=== PATIENT | male | born 1945 | race Caucasian/White ===

== ENCOUNTER → 2018-02-27 14:40 | Outpatient (CLI) | payer MEDICARE, OTHER, SELFPAY ==
--- NOTE | 2018-02-27 | DI.RAD.S_ITS ---
PROCEDURE: XR FOOT LT MIN 3V INDICATIONS: 72 year-old male with left foot pain. TECHNIQUE: 3 views of the foot were acquired. COMPARISON: None. FINDINGS: Skin marker denotes the site of clinical concern at the first metatarsophalangeal joint. Bones: No fractures or dislocations. No bony erosions. No joint degeneration. No suspicious bony lesions. Soft tissues: No soft tissue calcification. No tibiotalar joint effusion. Achilles tendon appears normal. IMPRESSION: No radiographic explanation for medial left forefoot pain. Dictated by: Francisco Holcomb M.D. on 02/27/2018 at 15:23 Approved by: Francisco Holcomb M.D. on 02/27/2018 at 15:25
== END ==
PROVIDERS: Visit Provider Internal Medicine
DX: M79.672 Pain in left foot (principal)
CPT/HCPCS: 73630

== ENCOUNTER → 2018-06-28 14:48 | Outpatient (CLI) | payer MEDICARE, OTHER, SELFPAY ==
--- NOTE | 2018-06-28 | DI.US.S_ITS ---
PROCEDURE: US ABDOMEN COMPLETE INDICATIONS: ABDOMINAL PAIN TECHNIQUE: Real-time scanning was performed of the abdominal and retroperitoneal organs, with image documentation. COMPARISON: None. FINDINGS: Liver: Liver is normal in size and homogeneous in echotexture. Gallbladder: No findings of gallstones or sludge are seen. The gallbladder wall is not thickened, measuring 3 mm or less. No specific pericholecystic fluid is seen. The sonographic Hoff sign is negative. Biliary ducts: Intrahepatic bile ducts are non-dilated. Extrahepatic bile duct caliber measures 6 mm. Normal is 6-7 mm or less in diameter, or 10 mm or less post-cholecystectomy. Pancreas: Laparoscopic anchors are seen. Spleen: Spleen is normal in size and homogeneous in echotexture. Kidneys: Kidneys are normal in size and echotexture. Right kidney measures 11.4 cm long; left kidney measures 9.8 cm long. No hydronephrosis or nephrolithiasis. No solid masses. Aorta: Visualized aorta is normal in caliber at less than 3 cm. Iliacs: Proximal common iliac arteries are normal in caliber at less than 2.5 cm. IVC: Intrahepatic inferior vena cava is patent. Miscellaneous: No free abdominal fluid. IMPRESSION: The gallbladder demonstrates a normal sonographic appearance. No biliary dilatation is seen. Dictated by: Dc Evans M.D. on 06/28/2018 at 14:56 Approved by: Dc Evans M.D. on 06/28/2018 at 14:57
== END ==
PROVIDERS: Visit Provider Internal Medicine
DX: R10.9 Unspecified abdominal pain (principal)
CPT/HCPCS: 76700

== ENCOUNTER → 2020-05-04 08:58 | Outpatient (CLI) | payer MEDICARE, OTHER, SELFPAY ==
[2020-05-05 09:14] LABS: COVID19 Sendout Not Detected (Not Detect)
== END ==
PROVIDERS: PCP Internal Medicine; Visit Provider Physician Assistant
DX: Z11.59 Encounter for screening for other viral diseases (principal)
CPT/HCPCS: 87635

== ENCOUNTER 2020-05-07 09:39 | Day surgery (SDC) | payer MEDICARE, OTHER, SELFPAY ==
--- NOTE | 2020-05-07 | PATH_ITS ---
[facility] Accession Number: [id number] . 01 Material submitted: . colon - POLYPS AT 80 CM . 01 Clinical history: . SDC . 02 Diagnosis: Colon, Polyps at 80 cm, Biopsy: Tubular adenomas. [facility] 05/10/2020 0927 Local . 02 Electronically signed: . Katharina Jacobson MD, Pathologist NPI- [id number] . 01 Gross description: . Received in formalin, labeled polyp at 80 cm, are three fragments of kern, soft tissue measuring 0.5 x 0.3 x 0.3 cm to 0.3 x 0.3 x 0.2 cm and two larger pieces of kern, soft tissue measuring 1.2 x 1.0 x 0.6 cm to 0.7 x 0.3 x 0.3 cm. The three smaller fragments are entirely submitted in cassette A1. The first large piece is inked, trisected, and entirely submitted in cassette A2. The tissue may further fragment during processing. The second large piece is inked, bisected, and entirely submitted in cassette A3. ([id number]) /FRR 05/08/2020 0853 Local . 02 Pathologist provided ICD-10: D12.6 . 02 CPT . 393421 Performed at: 01 [facility] [address], [place], [place] [id number] MD Gavino Reyes MD Phone: [phone] Performed at: 02 [facility] [address] [place], [place] [id number] MD Katharina Jacobson MD Phone: [phone]
[2020-05-07 09:58] VITALS: BP 145/88; PULSE 62; RESP 16; TEMP 36.3; O2SAT 97; BMI 23.7
[2020-05-07] MEDS: SODIUM CHLORIDE 0.9% 1,000 ML 200 ML IV (10:09)
--- NOTE | 2020-05-07 10:39 | P.HP_ITS ---
History of Present Illness History of Present Illness Date Patient Seen: 05/07/20 Time Patient Seen: 10:39 Chief complaint: [facility] [place] Narrative: This is a 74 year old man with personal history of colon polyps. His last colonoscopy was 7 years ago per him. He says that he has not had any melena, hematochezia, unexplained abdominal pain, or unexplained weight loss. ROS: He has some right-sided rib pain from a fall a few weeks ago. Thirteen system review is otherwise negative other than as mentioned below and in HPI. PE GENERAL: Well groomed and cooperative. Appears stated age. Answers questions promptly and appropriately. Vital signs noted. HENT: Normocephalic, atraumatic. Hearing intact. EYES: Conjunctiva pink, sclera white, no periorbital swelling. CARDIOVASCULAR: Regular rate. No pedal edema. RESPIRATORY: Non-tachypneic, breathing comfortably on room air. GASTROINTESTINAL: Abdomen soft and non-distended GENITALURINARY: No flank tenderness. MUSCULOSKELETAL: Equal tone and mass bilaterally. SKIN: Warm, dry, soft, appropriate color for ethnicity. No other lesions, rashes, or wounds. NEURO: Alert and Oriented X 3. No gross sensory deficits, or cognitive issues. PSYCH: Appropriate affect and mood. Patient History Family & Social History Social History: household members spouse Tobacco & Substance use: Smoking Status Former smoker alcohol intake current alcohol intake frequency 0-2 drinks per day Substance Use Type does not use Meds Home Medications and Allergies Home Medications Medication Instructions Recorded Confirmed Type calcium acetate(phosphat bind) 500 mg PO DAILY #0 08/11/11 05/07/20 History cholecalciferol (vitamin D3) 50 mcg PO DAILY 05/07/20 05/07/20 History [Vitamin D3] lactobacillus combination no.4 3,000 mmu cells PO DAILY 05/07/20 05/07/20 History [Probiotic] losartan 25 mg PO BID 05/07/20 05/07/20 History omeprazole 20 mg PO BID 05/07/20 05/07/20 History Allergies Allergy/AdvReac Type Severity Reaction Status Date / Time No Known Drug Allergies Allergy Unverified 05/04/20 08:57 Exam Vital Signs (past 8 hours): - 05/07/20 09:58 Temperature 97.4 F L Pulse Rate 62 Respiratory Rate 16 Blood Pressure 145/88 H Pulse Oximetry 97 Oxygen Delivery Method Room Air Assessment & Plan Assessment and plan (1) Personal history of colonic polyps: Status: Acute Assessment & Plan narrative: Risks and benefits of screening colonoscopy and possible polypectomy were discussed with the patient including risk of bleeding, perforation, need for additional procedures, risks of anesthesia. The patient desires to proceed with the colonoscopy procedure. COVID-19 COVID-19 status: Negative Result date/Date tested (Pos, Neg/Pending): 05/04/20 Time Spent With Patient Time with patient: 15-24 minutes Quality VTE Deep Vein Thrombosis/Pulmonary Embolism Present on Admission: No
[2020-05-07] MEDS: fentaNYL 250 MCG/5 ML INJ IV (10:44)
[2020-05-07] MEDS: MIDAZOLAM 5 MG/5 ML VIAL IV (10:45)
--- NOTE | 2020-05-07 10:46 | P.OP.ENDO_ITS ---
Operative Date/Time/Diagnoses Date of procedure: 05/07/20 Time of procedure: 10:46 Pre-op diagnosis: Personal history of colon polyps Post-op diagnosis: other (Five polyps at 80 cm removed with hot snare and cold forceps, severe diverticulosis throughout the sigmoid and descending colon) Procedure & Clinicians Study performed: Colonoscopy Procedural sedation performed by the endoscopy Polypectomy x5 with hot snare and cold forceps Tattooing of the colon of the polypectomy site Same procedure as scheduled: Yes Indications: Personal history of colon polyps Surgeon: Salud Urban Procedure Notes SCOAP/Timeout: Performed Procedure in detail: The patient was brought to the room and placed in left lateral decubitus position with all bony prominences padded. A time-out was performed and then the patient was given procedural sedation starting with 2 mg of Versed and 100 mcg of fentanyl. Total of 3 mg of Versed and 150 micro g of fentanyl were given for the entire procedure. Vitals were monitored throughout the procedure and remained stable. Once adequately sedated, the procedure was begun. A rectal exam was performed revealing no abnormalities. The colonoscope was then introduced to the rectum and advanced to the cecum in the usual fashion. The cecum was identified by the appendiceal orifice, the mucosal tri- fold, and the ileocecal valve. The scope was then retracted while rotating side to side and examining each mucosal fold. There was extensive diverticulosis found in the descending and sigmoid colon. There were 5 polyps found at 80 cm. For them were large in group together. They were removed with hot snare additional polyp was found on the opposite wall which appeared to be hyperplastic. These were all removed and placed in the same container. At the conclusion of the procedure retroflexion was performed and small grade 1-2 internal hemorrhoids without stigmata of bleeding were seen. The scope was then withdrawn from the rectum the procedure was concluded. The patient tolerated the procedure well and was transferred to the PACU in stable condition. Scope withdrawal time: 9 Sedation minutes: 26 Findings: polyp (Multiple large polyps removed from 80 cm) Specimen(s): other (Multiple large polyps from 80 cm) Complications: none Impression: Multiple large polyps at 80 cm Post-procedure Recommendations: Colonscopy in 1 year (Recheck polypectomy site) and Other recommendation (Additional follow-up depending on pathology results) Follow up: as needed Disposition: PACU
[2020-05-07 11:17] VITALS: BP 139/84; PULSE 62; RESP 16; TEMP 36.3; O2SAT 100
[2020-05-07 11:26] VITALS: BP 133/80; PULSE 59; RESP 20; O2SAT 98
[2020-05-07 11:29] VITALS: BP 138/83; PULSE 59; RESP 20; O2SAT 99
[2020-05-07 11:31] VITALS: BP 138/81; PULSE 58; RESP 17; O2SAT 98
[2020-05-07 11:42] VITALS: BP 149/85; PULSE 59; RESP 18; TEMP 36.8; O2SAT 100
== END 2020-05-07 12:05 | disposition home or self-care (01) ==
PROVIDERS: PCP Internal Medicine; Referring Provider Internal Medicine; Visit Provider Surgery
PROC: 0DJD8ZZ Inspection of Lower Intestinal Tract, Via Natural or Artificial Opening Endoscopic (ICD-10-PCS; CPT 45378; principal; 2020-05-07 10:45)
DX: Z12.11 Encounter for screening for malignant neoplasm of colon (principal); Z86.010 Personal history of colon polyps; D12.6 Benign neoplasm of colon, unspecified
CPT/HCPCS: 45385; 45381; 45380; 99152; J2250; J3010

== ENCOUNTER → 2020-06-11 09:22 | Outpatient (CLI) | payer MEDICARE, OTHER, SELFPAY ==
[2020-06-11 10:29] LABS: Add Manual Diff / Slide Review NO; Basophils Absolute Auto 0 /uL (0-100); Basophils Percent Auto 0.2 % (0-2); Eosinophils Absolute Auto 200 /uL (0-450); Eosinophils Percent Auto 2.6 % (2-4); Hematocrit 42.5 % (41-53); Hemoglobin 14.4 g/dL (13.5-17.5); Lymphocytes Absolute Auto 1200 /uL (1100-4500); Lymphocytes Percent Auto 19.8 % (25-40); Mean Corpuscular HGB Conc 33.8 % (30-36); Mean Corpuscular Hemoglobin 32.2 PG (26-34); Mean Corpuscular Volume 95.3 fL (80-100); Monocytes Absolute Auto 400 /uL (0-900); Monocytes Percent Auto 7.2 % (3-14); Neutrophils Absolute Auto 4200 /uL (1500-7000); Neutrophils Percent Auto 70.2 % (50-75); Platelet Count 165 X10^3/uL (150-400); Red Blood Cell Count 4.46 X10^6/uL (4.5-5.9); Red Cell Distribution Width 13.5 % (11.6-14.8)
[2020-06-11 11:04] LABS: BUN Creatinine Ratio 19.8 (6-22); Blood Urea Nitrogen 21 mg/dL (9-20); Carbon Dioxide 31 mmol/L (22-32); Chloride 104 mmol/L (98-107); Estimated Glomerular Filt Rate > 60.0 mL/min (>60); Glucose 81 mg/dL (80-110); HEMOLYSIS < 15 (0-50); Potassium 4.3 mmol/L (3.4-5.1); Sodium 138 mmol/L (137-145)
== END ==
PROVIDERS: PCP Internal Medicine; Referring Provider Internal Medicine; Visit Provider Internal Medicine
DX: I10 Essential (primary) hypertension (principal); M81.0 Age-related osteoporosis without current pathological fracture
CPT/HCPCS: 36415; 80048; 85025

== ENCOUNTER → 2020-06-17 14:04 | Outpatient (CLI) | payer MEDICARE, OTHER, SELFPAY | PROVIDERS: PCP Internal Medicine; Referring Provider Internal Medicine; Visit Provider Internal Medicine | DX: M81.0 Age-related osteoporosis without current pathological fracture (principal); Z82.62 Family history of osteoporosis; Z87.891 Personal history of nicotine dependence | CPT/HCPCS: 77080 ==

== ENCOUNTER → 2020-07-29 12:07 | Outpatient (CLI) | payer MEDICARE, OTHER, SELFPAY ==
--- NOTE | 2020-07-29 12:10 | DI.MRI.S_ITS ---
PROCEDURE: MR LUMBAR SPINE WO CON INDICATIONS: Pain. TECHNIQUE: Noncontrast sagittal T1 spin echo and T2 fast echo, sagittal STIR, axial T1 and T2 fast spin echo through the lumbar spine. In cases with scoliosis, additional coronal T2 fast spin echo may be performed. COMPARISON: None. FINDINGS: Image quality: Excellent. Alignment and Curvature: There is normal bony alignment. Bone Marrow: Reactive endplate changes noted adjacent to the L5-S1 disc. Chronic appearing L1 and L4 compression deformities noted. L1 compression fracture results in approximately 50% loss of normal vertebral body height. L4 compression fracture results in approximately 20% loss of normal vertebral body height. No acute vertebral body compression fractures. Spinal Cord: Conus medullaris terminates at the L1 level. Visualized cord demonstrates normal signal and size. Paraspinous Soft Tissues: No paravertebral masses. L1-L2: Loss of disc signal. Mild, diffuse disc bulge. No central stenosis. Mild bilateral neural foraminal narrowing. No neural compression. L2-L3: Loss of disc signal. Mild, diffuse disc bulge. Mild bilateral facet hypertrophy. Mild narrowing of the central canal. Mild to moderate bilateral neural foraminal narrowing. No neural compression fissure noted in the posterior annulus. L3-L4: Loss of disc signal. Minimal, diffuse disc bulge. [id number] bilateral facet hypertrophy. Mild narrowing of the central canal. Mild to moderate bilateral neural foraminal narrowing. No neural compression. L4-L5: Loss of disc signal. Mild to moderate diffuse disc bulge. Moderate bilateral facet hypertrophy. Moderate to severe narrowing of the central canal with crowding of the nerve roots of the cauda equina. Moderate bilateral neural foraminal narrowing. Fissure noted in the posterior annulus. L5-S1: Loss of disc signal and height. Mild, diffuse disc bulge. Small left central disc protrusion. Disc protrusion abuts and compresses the traversing left S1 nerve root. Mild right moderate left facet hypertrophy. Mild narrowing of the central canal. Moderate right and severe left neural foraminal narrowing with compression of the exiting left L5 nerve root. IMPRESSION: 1. Multilevel degenerative disc disease. 2. Multilevel facet arthropathy. 3. Moderate to severe L4-L5 central canal narrowing with crowding of the nerve roots of the cauda equina. 4. Severe left L5-S1 neural foraminal narrowing with compression of the exiting left L5 nerve root. 5. L5-S1 left central disc protrusion abuts and compresses the traversing left S1 nerve root. Dictated by: Yoli Starkey MD, PhD on 07/29/2020 at 13:55 Approved by: Yoli Starkey MD, PhD on 07/29/2020 at 14:13
== END ==
PROVIDERS: PCP Internal Medicine; Referring Provider Internal Medicine; Visit Provider Internal Medicine
DX: M48.062 Spinal stenosis, lumbar region with neurogenic claudication (principal); M48.07 Spinal stenosis, lumbosacral region; M51.36 Other intervertebral disc degeneration, lumbar region; M51.27 Other intervertebral disc displacement, lumbosacral region; M47.816 Spondylosis without myelopathy or radiculopathy, lumbar region; N40.1 Benign prostatic hyperplasia with lower urinary tract symptoms
CPT/HCPCS: 72148

== ENCOUNTER 2020-09-20 12:04 | Emergency (ER) | payer MEDICARE, OTHER, SELFPAY ==
[2020-09-20 12:19] VITALS: BP 169/84; PULSE 71; RESP 16; TEMP 36.6; O2SAT 97; BMI 24.0
--- NOTE | 2020-09-20 12:20 | DI.RAD.S_ITS ---
PROCEDURE: XR CHEST 1V INDICATIONS: chest pain TECHNIQUE: One view of the chest was acquired. COMPARISON: [facility], , CHEST 2 VIEW, 08/17/2015, 16:11. FINDINGS: Surgical changes and devices: None. Lungs and pleura: Lungs are clear. No pleural effusions or pneumothorax. Mediastinum: Mediastinal contours appear normal. Heart size is normal. Bones and chest wall: No suspicious bony lesions. Overlying soft tissues appear unremarkable. IMPRESSION: No acute process. Dictated by: Jefe Ren M.D. on 09/20/2020 at 12:53 Approved by: Jefe Ren M.D. on 09/20/2020 at 12:54
[2020-09-20 12:35] VITALS: PULSE 59; RESP 20; O2SAT 97
[2020-09-20 12:37] LABS: Add Manual Diff / Slide Review NO; Basophils Absolute Auto 0 /uL (0-100); Basophils Percent Auto 0.4 % (0-2); Eosinophils Absolute Auto 100 /uL (0-450); Eosinophils Percent Auto 1.7 % (2-4); Hematocrit 44.7 % (41-53); Hemoglobin 15.3 g/dL (13.5-17.5); Lymphocytes Absolute Auto 1200 /uL (1100-4500); Lymphocytes Percent Auto 18.5 % (25-40); Mean Corpuscular HGB Conc 34.4 % (30-36); Mean Corpuscular Hemoglobin 32.3 PG (26-34); Mean Corpuscular Volume 93.9 fL (80-100); Monocytes Absolute Auto 500 /uL (0-900); Monocytes Percent Auto 7.5 % (3-14); Neutrophils Absolute Auto 4800 /uL (1500-7000); Neutrophils Percent Auto 71.9 % (50-75); Platelet Count 177 X10^3/uL (150-400); Red Blood Cell Count 4.76 X10^6/uL (4.5-5.9); Red Cell Distribution Width 13.1 % (11.6-14.8); White Blood Cell Count 6.6 X10^3/uL (4.5-11.0)
[2020-09-20 12:43] LABS: Prothrombin Time 11.8 SECONDS (10.1-12.7)
[2020-09-20 12:46] LABS: PTT Partial Thromboplastin Tim 34 SECONDS (26.4-36.2)
[2020-09-20 12:49] LABS: Alanine Aminotransferase 25 IU/L (<50); Albumin Globulin Ratio 1.4 (1.0-2.8); Alkaline Phosphatase 80 U/L (38-126); Aspartate Aminotransferase 28 IU/L (17-59); Bilirubin Total 0.8 mg/dL (0.2-1.3); Blood Urea Nitrogen 21 mg/dL (9-20); Calcium 8.9 mg/dL (8.4-10.2); Carbon Dioxide 31 mmol/L (22-32); Chloride 105 mmol/L (98-107); Creatine Kinase 42 U/L (55-170); Estimated Glomerular Filt Rate > 60.0 mL/min (>60); Globulin 2.9 g/dL (1.7-4.1); Glucose 85 mg/dL (80-110); HEMOLYSIS < 15 (0-50); Lipase 54 U/L (23-300); Potassium 4.1 mmol/L (3.4-5.1); Sodium 138 mmol/L (137-145); Total Protein 6.9 g/dL (6.3-8.2)
[2020-09-20 13:00] VITALS: BP 152/81; PULSE 57; RESP 16; O2SAT 97
[2020-09-20 13:01] LABS: NT-proBNP (BNP-Adult 18+) 203 pg/mL (<450); Troponin I < 0.012 ng/mL (0.01-0.034)
--- NOTE | 2020-09-20 13:01 | ED.DIZZY ---
HPI - Dizziness General Chief Complaint: Dizziness Stated Complaint: short of breath on exertion,vertigo Time Seen by Provider: 09/20/20 12:28 Source: patient Mode of arrival: Ambulatory Limitations: no limitations History of Present Illness HPI Narrative: This is a 75-year-old male who comes to the emergency department with complaint of vertigo like symptoms. He states that it started Sunday evening or on the , patient was reaching up to get something out of a closet when he suddenly felt like the room and more himself at this time or spinning. He states for the next 24 hours symptoms were pretty significantly been slowly fatiguing but continue particularly with bpgo-pl-csar movement of his head or quick movement. Up and down does not increase his symptoms. Patient denies headache, no lightheadedness or passing out. He states he did fall backwards to the wall but did not hit his head. He has had some decreased energy and fatigue. He has noticed a little bit of shortness of breath when he exerts himself. He normally walks for a 1/2 miles daily but has not since his symptoms started. He denies any chest pain or pressure. No diaphoresis. He was quite nauseated the 1st day but this has resolved. No vomiting episodes. No issues with bowel movements. He has some chronic urinary incontinence. He states that today he came in because he has continued to have symptoms. She tried follow-up with his primary care who sent him to the walk-in clinic who then sent him here. His main concern today was actually getting a COVID swab with his shortness of breath. Related Data Home Medications Medication Instructions Recorded Confirmed calcium acetate(phosphat bind) 500 mg PO DAILY #0 08/11/11 05/07/20 Probiotic 3,000 mmu cells PO DAILY 05/07/20 05/07/20 cholecalciferol (vitamin D3) 50 mcg PO DAILY 05/07/20 05/07/20 [Vitamin D3] losartan 25 mg PO BID 05/07/20 05/07/20 omeprazole 20 mg PO BID 05/07/20 05/07/20 Previous Rx's Medication Instructions Recorded meclizine 25 mg PO TID PRN #20 tab 09/20/20 Allergies Allergy/AdvReac Type Severity Reaction Status Date / Time cyclobenzaprine Allergy Intermediate Drowsy Verified 09/16/20 10:22 [From Flexeril] Review of Systems Review of Systems ROS Unobtainable: All systems reviewed & are unremarkable except as noted in HPI and below Patient History Medical History (Updated 09/20/20 @ 15:03 by Irena Dinh DO) Hypertension Surgical History H/O cataract removal with insertion of prosthetic lens History of hernia surgery Hx of eye surgery Family History (Updated 09/16/20 @ 10:24 by Lilly Buchanan LPN) Father Pneumonia Mother Dementia Alzheimer disease Social History household members: spouse Smoking Status: Former smoker alcohol intake: current Smoking Status: Former smoker alcohol intake frequency: 0-2 drinks per day Substance Use Type: does not use Exam Narrative Exam Narrative: GEN: well nourished, well appearing elderly male, alert and oriented x 3, patient appears to be in mild distress. HEENT: Atraumatic, pupils are equal round reactive to light, extraocular movements are intact, no nystagmus appreciated, nares are clear, left TM is are clear with no fluid, right TM patient has scant fluid, no erythema, no bulge. Had TM has normal right reflection. Throat is clear without any exudates, erythema, tonsillar enlargement or uvular deviation, no facial droop. No dysarthria. HEART: Regular rate and rhythm without murmur, clicks, rubs. Pulses are equal in upper and lower extremities LUNGS:Lungs clear to auscultation, no wheezes, rales, crackles, chest moves symmetrically ABD:bowel sounds normal, soft, non-tender, no guarding, rebound, rigidity, no masses noted, no hepatosplenomegaly :No CVA tenderness MSCL: Non-tender, no muscle atrophy, muscles strength 5/5 upper and lower extremities, full range of motion NEURO:CN 2-12 intact, sensation normal, reflexes 2/4 upper and lower extremities. finger nose finger test normal, heel asencio test normal SKIN: no rash, erythema, ecchymosis or other changes noted. Initial Vital Signs Initial Vital Signs: Vital Signs Temperature 97.8 F 09/20/20 12:19 Pulse Rate 71 09/20/20 12:19 Respiratory Rate 16 09/20/20 12:19 Blood Pressure 169/84 H 09/20/20 12:19 Pulse Oximetry 97 09/20/20 12:19 Scores NIH Stroke Scale Level of Conciousness: Alert, keenly responsive Ask month/age: Answers both questions correctly. Open/close eyes, close hand: Performs both tasks correctly Best gaze horizontal: Normal Visual russell: No visual loss Facial palsy: Normal symetrical movement Left arm drift: No drift for full 10 sec Right arm drift: No drift for full 10 sec Left leg drift: No drift for full 5 sec Right leg drift: No drift for full 5 sec Limb ataxia: Absent Sensory on face/arms/legs: Normal, no sensory loss Best language: No aphasia, normal Dysarthria: Normal Extinction or inattention: No abnormality Total NIH Stroke scale score: 0 Course Orders Ordered: ED Orders 09/20/20 12:20 XR chest 1V Stat EKG-12 Lead Stat 09/20/20 12:25 Complete Blood Count AUTO DIFF Stat Comprehensive Metabolic Panel Stat Lipase Stat Magnesium Stat NT-proBNP (BNP-Adult 18+) Stat Partial Thromboplastin Time Stat Prothrombin Time INR Stat Thyroid Stimulating Hormone Stat Troponin & CK Cardiac Panel Stat 09/20/20 13:36 CT angio head and neck Stat CT head/brain wo con Stat 09/20/20 13:54 EKG-12 Lead Stat 09/20/20 14:23 COVID19 Stat Consultations Consultation #1: Dr. Clinton with cardiology discussed EKG. Spoke with Dr. Clinton if only noted in a single beat and patient is not bradycardic he would recommend outpatient ZIO patch, making sure magnesium, potassium and TSH are appropriate. The patient is not taking any AV patti blockers which he is not his only medication currently is losartan and omeprazole. Time: 13:45 Vital Signs Vital signs: Vital Signs - 8 hr 09/20/20 12:19 09/20/20 12:35 09/20/20 13:00 Temperature 97.8 F Pulse Rate 71 59 L 57 L Respiratory Rate 16 20 16 Blood Pressure 169/84 H 152/81 H Pulse Oximetry 97 97 97 09/20/20 13:30 09/20/20 13:31 09/20/20 15:48 Temperature Pulse Rate 59 L 62 61 Respiratory Rate 20 21 20 Blood Pressure 189/92 H 166/83 H Pulse Oximetry 98 98 98 MDM - Dizziness Lab Data Attestation: I reviewed the patient's lab results. Result diagrams: 09/20/20 12:25 09/20/20 12:25 Labs: Lab Results 09/20/20 09/20/20 09/20/20 Range/Units 12:25 12:25 12:25 WBC 6.6 (4.5-11.0) X10^3/uL RBC 4.76 (4.5-5.9) X10^6/uL Hgb 15.3 (13.5-17.5) g/dL Hct 44.7 (41-53) % MCV 93.9 (80-100) fL MCH 32.3 (26-34) PG MCHC 34.4 (30-36) % RDW 13.1 (11.6-14.8) % Plt Count 177 (150-400) X10^3/uL Neut % (Auto) 71.9 (50-75) % Lymph % (Auto) 18.5 L (25-40) % [place] % (Auto) 7.5 (3-14) % Eos % (Auto) 1.7 L (2-4) % Baso % (Auto) 0.4 (0-2) % Neut # (Auto) 4800 (9409-1245) /uL Lymph # (Auto) 1200 (1366-9897) /uL [place] # (Auto) 500 (0-900) /uL Eos # (Auto) 100 (0-450) /uL Baso # (Auto) 0 (0-100) /uL PT 11.8 (10.1-12.7) SECONDS INR 1.0 (0.9-1.3) APTT 34 (26.4-36.2) SECONDS Sodium 138 (137-145) mmol/L Potassium 4.1 (3.4-5.1) mmol/L Chloride 105 (98-107) mmol/L Carbon Dioxide 31 (22-32) mmol/L BUN 21 H (9-20) mg/dL Creatinine 1.05 (0.66-1.25) mg/dL Estimated GFR > 60.0 (>60) mL/min BUN/Creatinine Ratio 20.0 (6-22) Glucose 85 (80-110) mg/dL Calcium 8.9 (8.4-10.2) mg/dL Magnesium (1.6-2.3) mg/dL Total Bilirubin 0.8 (0.2-1.3) mg/dL AST 28 (17-59) IU/L ALT 25 (<50) IU/L Alkaline Phosphatase 80 (38-126) U/L Total Creatine Kinase 42 L (55-170) U/L CK-MB (CK-2) TNP CK-MB (CK-2) Rel Index TNP Troponin I < 0.012 (0.01-0.034) ng/mL NT-Pro-B Natriuret Pep 203 (<450) pg/mL Total Protein 6.9 (6.3-8.2) g/dL Albumin 4.0 (3.5-5.0) g/dL Globulin 2.9 (1.7-4.1) g/dL Albumin/Globulin Ratio 1.4 (1.0-2.8) Lipase 54 (23-300) U/L TSH (0.47-4.68) uIU/mL SARS-CoV-2 (PCR) (Negative) 09/20/20 09/20/20 09/20/20 Range/Units 12:25 12:25 12:25 WBC (4.5-11.0) X10^3/uL RBC (4.5-5.9) X10^6/uL Hgb (13.5-17.5) g/dL Hct (41-53) % MCV (80-100) fL MCH (26-34) PG MCHC (30-36) % RDW (11.6-14.8) % Plt Count (150-400) X10^3/uL Neut % (Auto) (50-75) % Lymph % (Auto) (25-40) % [place] % (Auto) (3-14) % Eos % (Auto) (2-4) % Baso % (Auto) (0-2) % Neut # (Auto) (0725-8229) /uL Lymph # (Auto) (1596-9346) /uL [place] # (Auto) (0-900) /uL Eos # (Auto) (0-450) /uL Baso # (Auto) (0-100) /uL PT (10.1-12.7) SECONDS INR (0.9-1.3) APTT (26.4-36.2) SECONDS Sodium (137-145) mmol/L Potassium (3.4-5.1) mmol/L Chloride (98-107) mmol/L Carbon Dioxide (22-32) mmol/L BUN (9-20) mg/dL Creatinine (0.66-1.25) mg/dL Estimated GFR (>60) mL/min BUN/Creatinine Ratio (6-22) Glucose (80-110) mg/dL Calcium (8.4-10.2) mg/dL Magnesium 1.9 (1.6-2.3) mg/dL Total Bilirubin (0.2-1.3) mg/dL AST (17-59) IU/L ALT (<50) IU/L Alkaline Phosphatase (38-126) U/L Total Creatine Kinase (55-170) U/L CK-MB (CK-2) CK-MB (CK-2) Rel Index Troponin I (0.01-0.034) ng/mL NT-Pro-B Natriuret Pep Cancelled (<450) pg/mL Total Protein (6.3-8.2) g/dL Albumin (3.5-5.0) g/dL Globulin (1.7-4.1) g/dL Albumin/Globulin Ratio (1.0-2.8) Lipase (23-300) U/L TSH 1.07 (0.47-4.68) uIU/mL SARS-CoV-2 (PCR) (Negative) 09/20/20 Range/Units 14:23 WBC (4.5-11.0) X10^3/uL RBC (4.5-5.9) X10^6/uL Hgb (13.5-17.5) g/dL Hct (41-53) % MCV (80-100) fL MCH (26-34) PG MCHC (30-36) % RDW (11.6-14.8) % Plt Count (150-400) X10^3/uL Neut % (Auto) (50-75) % Lymph % (Auto) (25-40) % [place] % (Auto) (3-14) % Eos % (Auto) (2-4) % Baso % (Auto) (0-2) % Neut # (Auto) (6575-0188) /uL Lymph # (Auto) (2355-9652) /uL [place] # (Auto) (0-900) /uL Eos # (Auto) (0-450) /uL Baso # (Auto) (0-100) /uL PT (10.1-12.7) SECONDS INR (0.9-1.3) APTT (26.4-36.2) SECONDS Sodium (137-145) mmol/L Potassium (3.4-5.1) mmol/L Chloride (98-107) mmol/L Carbon Dioxide (22-32) mmol/L BUN (9-20) mg/dL Creatinine (0.66-1.25) mg/dL Estimated GFR (>60) mL/min BUN/Creatinine Ratio (6-22) Glucose (80-110) mg/dL Calcium (8.4-10.2) mg/dL Magnesium (1.6-2.3) mg/dL Total Bilirubin (0.2-1.3) mg/dL AST (17-59) IU/L ALT (<50) IU/L Alkaline Phosphatase (38-126) U/L Total Creatine Kinase (55-170) U/L CK-MB (CK-2) CK-MB (CK-2) Rel Index Troponin I (0.01-0.034) ng/mL NT-Pro-B Natriuret Pep (<450) pg/mL Total Protein (6.3-8.2) g/dL Albumin (3.5-5.0) g/dL Globulin (1.7-4.1) g/dL Albumin/Globulin Ratio (1.0-2.8) Lipase (23-300) U/L TSH (0.47-4.68) uIU/mL SARS-CoV-2 (PCR) Negative (Negative) Imaging Data CT scan - head: Radiologist's Impression: [address] [id number] Scan ReportSigned Patient: Suleman Solomon [facility]#: [id number]: 4Acct:[id number]/Sex: 75 / MDate of Service: 09/20/20Loc: EDAccession Number: [id number] Procedure: CT head/brain wo con Ordering Provider: Irena Dinh D.O. PROCEDURE: CT HEAD/BRAIN WO CON INDICATIONS: vertigo x 3 days, no prior TECHNIQUE: Noncontrast 4.5 mm thick angled axial sections acquired from the foramen magnum to the vertex, with coronal and sagittal reformats. For radiation dose reduction, the following was used: automated exposure control, adjustment of mA and/or kV according to patient size. COMPARISON: None. FINDINGS: Image quality: Excellent. CSF spaces: Basal cisterns are patent. No extra-axial fluid collections. Ventricles are normal in size and shape. Brain: No midline shift. No intracranial masses or hemorrhage. [place]-white matter interface is normal. Skull and face: Calvarium and visualized facial bones are intact, without suspicious lesions. Sinuses: Visualized sinuses and mastoids are clear. IMPRESSION: No acute intracranial abnormality. Dictated by: Rupert Ball M.D. on 09/20/2020 at 14:16 Approved by: Rupert Ball M.D. on 09/20/2020 at 14:18 Chest x-ray: Radiologist's Impression: Suleman Solomon 75 M [address] [id number] ReportSigned Patient: Suleman Solomon [facility]#: [id number]: 1945cct:[id number]/Sex: 75 / MDate of Service: 09/20/20Loc: EDAccession Number: [id number] Procedure: XR chest 1V Ordering Provider: Irena Dinh D.O. PROCEDURE: XR CHEST 1V INDICATIONS: chest pain TECHNIQUE: One view of the chest was acquired. COMPARISON: [facility], CHEST 2 VIEW, 08/17/2015, 16:11. FINDINGS: Surgical changes and devices: None. Lungs and pleura: Lungs are clear. No pleural effusions or pneumothorax. Mediastinum: Mediastinal contours appear normal. Heart size is normal. Bones and chest wall: No suspicious bony lesions. Overlying soft tissues appear unremarkable. IMPRESSION: No acute process. Dictated by: Jefe Ren M.D. on 09/20/2020 at 12:53 Approved by: Jefe Ren M.D. on 09/20/2020 at 12:54 CTA - brain/neck: Radiologist's Impression: [address] [id number] Scan ReportSigned Patient: Suleman Solomon [facility]#: [id number]: [id number]:[id number]/Sex: 75 / MDate of Service: 09/20/20Loc: EDAccession Number: [id number] Procedure: CT angio head and neck Ordering Provider: Irena Dinh D.O. PROCEDURE: CT ANGIO HEAD AND NECK INDICATIONS: vertigo x 3 days, new onset TECHNIQUE: Pre-contrast 4.5 mm thick sections acquired from the foramen magnum to the vertex. After the administration of intravenous contrast, 1 mm thick sections acquired from the aortic arch through the [place]. Post-contrast 4.5 mm thick sections then re-acquired from the foramen magnum to the vertex. 3-dimensional xfagbgt-jfvncygnk-tmkuukbhba (MIP) and/or volume rendering reformats were acquired of the central intracranial vasculature and neck separately. COMPARISON: None. FINDINGS: Image quality: Excellent. BRAIN: CSF spaces: Ventricles are normal in size and shape. Basal cisterns are patent. No extra-axial fluid collections. Brain: No midline shift. No intracranial bleeds or masses. Camacho-white matter interface appears intact. Skull and face: Calvarium and facial bones appear intact, without suspicious lesions. Orbits appear normal. Sinuses: Sinuses and mastoids are clear. HEAD CT ANGIOGRAPHY: Anterior circulation: Intracranial internal carotid arteries have atherosclerotic calcifications but have no significant stenosis and are normal in size and flow. The flow within the paired anterior cerebral arteries is normal and symmetric. The flow within the middle cerebral arteries is normal and symmetric. The anterior communicating artery is seen. No aneurysms are seen. Posterior circulation: Visualized portions of the vertebral arteries demonstrate normal caliber, and join to form a normal appearing basilar artery. Flow within the posterior cerebral arteries is normal and symmetric. No aneurysms are seen. NECK CT ANGIOGRAPHY: Carotid system: The great vessels demonstrate a conventional anatomy as they arise from the aortic arch. The origins of the common carotid arteries appear patent. The common carotid arteries demonstrate normal caliber and courses. The bifurcation regions are both widely patent. The internal carotid arteries demonstrate normal calibers and courses. Posterior circulation: The origins of the vertebral arteries both appear widely patent. The more superior extracranial portions of both vertebral arteries also demonstrate normal courses and calibers. They join to form a normal appearing basilar artery. Soft tissues: Visualized neck soft tissues demonstrate no suspicious abnormalities. Bones: No suspicious bony lesions. Visualized cervical spine appears normally aligned. IMPRESSION: 1. No acute intracranial abnormality. 2. Normal CTA of the neck. 3. Atherosclerotic calcifications in the cavernous portions of the intracranial internal carotid arteries Any quantitative measurements of stenosis were performed using NASCET criteria. Dictated by: Rupert Ball M.D. on 09/20/2020 at 14:22 Approved by: Rupert Ball M.D. on 09/20/2020 at 14:45 ECG Data Attestation: I personally reviewed and interpreted this ECG as follows: Prior ECG tracings: not available for review Interpretation: Sinus tachycardia with 2nd degree AV block. Rate of 59, MO 186, QRS 78 QTC 358. No elevation appreciated. Nonspecific change. Patient does not have prior for comparison. EKG 2. Sinus bradycardia rate of 54, MO 170, QRS 86 and QTC 390. Nonspecific change. No appreciated av block or changed beats on this EKG. MDM Narrative Medical decision making narrative: Patient has onset vertigo which has been slowly fatiguing over time, with no new neurologic changes making me suspect that this is not a CVA. Head CT and CT angiography were obtained which show no acute atherosclerotic calcifications in the intracranial ICAs, but no significant stenosis. Normal size and flow. But otherwise normal CTA of the neck. Patient labs show no major abnormalities, covid is negative. Patient's EKG change was only noted for 1 beat. Discussed with Cardiology. This is an unlikely cause of patient's vertigo. They recommend ZIO patch and follow up. Patient would likely also benefit from a statin with his atherosclerosis on CTA, not initiated today but asked to contact PCP for this. No acute neurologic changes that make me suspect patient has had a stroke causing his vertigo or other emergent neurologic cause. Labs show no major abnormalities, chest x-ray is clear but patient does have possible second-degree type 2 av block noted on EKG incidentally. There is only one beat/change noted and it is not visualized on repeat EKG or telemetry. is unlikely to be the cause of his recent symptoms but was discussed with Cardiology, and the recommendations of ZIO patch and follow-up were related to that patient who states he will follow up. Discharge Plan Departure Patient Disposition: Home Clinical Impression: Vertigo Instructions: DI for Vertigo Activity Restrictions/Additional Instructions: Follow-up with your physician regarding your vertigo symptoms, if they continue you may wish to follow-up with ENT for further evaluation. Referral is included below. You may try meclizine, 1- 2 tabs as needed for vertigo symptoms. Your imaging today shows some atherosclerosis in the blood vessels in her brain and recommended that you take his statin daily or at least discuss taking a statin with her physician. Your EKG also showed in 1 ft a possible AV block and it is recommended to have a ZIO patch for 2 weeks for evaluation. You can follow up with cardiology or your primary care for this to be ordered. Return to the ER for severe headaches, new vision changes, difficulty with speech, new numbness, weakness or tingling, difficulty with moving your extremities, persistent vomiting, new chest pain shortness of breath or other new or concerning symptoms. Prescriptions: New meclizine 25 mg tablet,chewable 25 mg PO TID PRN (Reason: dizziness or vertigo) Qty: 20 RF: 0 No Action calcium acetate(phosphat bind) 667 MG capsule 500 mg PO DAILY Qty: 0 RF: 0 losartan 25 mg tablet 25 mg PO BID RF: 0 omeprazole 20 mg capsule,delayed release(DR/EC) 20 mg PO BID RF: 0 cholecalciferol (vitamin D3) [Vitamin D3] 50 mcg (2,000 unit) Tablet 50 mcg PO DAILY RF: 0 Probiotic 3 billion cell Capsule 3,000 mmu cells PO DAILY RF: 0 Referrals: Tate Pryor MD [Primary Care Provider] -
[2020-09-20 13:30] VITALS: PULSE 59; RESP 20; O2SAT 98
[2020-09-20 13:31] VITALS: BP 189/92; PULSE 62; RESP 21; O2SAT 98
--- NOTE | 2020-09-20 13:36 | DI.CT.S_ITS ---
PROCEDURE: CT ANGIO HEAD AND NECK INDICATIONS: vertigo x 3 days, new onset TECHNIQUE: Pre-contrast 4.5 mm thick sections acquired from the foramen magnum to the vertex. After the administration of intravenous contrast, 1 mm thick sections acquired from the aortic arch through the [place]. Post-contrast 4.5 mm thick sections then re-acquired from the foramen magnum to the vertex. 3-dimensional lqtoeok-wwbkhpdta-qcohycydyc (MIP) and/or volume rendering reformats were acquired of the central intracranial vasculature and neck separately. COMPARISON: None. FINDINGS: Image quality: Excellent. BRAIN: CSF spaces: Ventricles are normal in size and shape. Basal cisterns are patent. No extra-axial fluid collections. Brain: No midline shift. No intracranial bleeds or masses. [place]-white matter interface appears intact. Skull and face: Calvarium and facial bones appear intact, without suspicious lesions. Orbits appear normal. Sinuses: Sinuses and mastoids are clear. HEAD CT ANGIOGRAPHY: Anterior circulation: Intracranial internal carotid arteries have atherosclerotic calcifications but have no significant stenosis and are normal in size and flow. The flow within the paired anterior cerebral arteries is normal and symmetric. The flow within the middle cerebral arteries is normal and symmetric. The anterior communicating artery is seen. No aneurysms are seen. Posterior circulation: Visualized portions of the vertebral arteries demonstrate normal caliber, and join to form a normal appearing basilar artery. Flow within the posterior cerebral arteries is normal and symmetric. No aneurysms are seen. NECK CT ANGIOGRAPHY: Carotid system: The great vessels demonstrate a conventional anatomy as they arise from the aortic arch. The origins of the common carotid arteries appear patent. The common carotid arteries demonstrate normal caliber and courses. The bifurcation regions are both widely patent. The internal carotid arteries demonstrate normal calibers and courses. Posterior circulation: The origins of the vertebral arteries both appear widely patent. The more superior extracranial portions of both vertebral arteries also demonstrate normal courses and calibers. They join to form a normal appearing basilar artery. Soft tissues: Visualized neck soft tissues demonstrate no suspicious abnormalities. Bones: No suspicious bony lesions. Visualized cervical spine appears normally aligned. IMPRESSION: 1. No acute intracranial abnormality. 2. Normal CTA of the neck. 3. Atherosclerotic calcifications in the cavernous portions of the intracranial internal carotid arteries Any quantitative measurements of stenosis were performed using NASCET criteria. Dictated by: Rupert Ball M.D. on 09/20/2020 at 14:22 Approved by: Rupert Ball M.D. on 09/20/2020 at 14:45
--- NOTE | 2020-09-20 13:36 | DI.CT.S_ITS ---
PROCEDURE: CT HEAD/BRAIN WO CON INDICATIONS: vertigo x 3 days, no prior TECHNIQUE: Noncontrast 4.5 mm thick angled axial sections acquired from the foramen magnum to the vertex, with coronal and sagittal reformats. For radiation dose reduction, the following was used: automated exposure control, adjustment of mA and/or kV according to patient size. COMPARISON: None. FINDINGS: Image quality: Excellent. CSF spaces: Basal cisterns are patent. No extra-axial fluid collections. Ventricles are normal in size and shape. Brain: No midline shift. No intracranial masses or hemorrhage. [place]-white matter interface is normal. Skull and face: Calvarium and visualized facial bones are intact, without suspicious lesions. Sinuses: Visualized sinuses and mastoids are clear. IMPRESSION: No acute intracranial abnormality. Dictated by: Rupert Ball M.D. on 09/20/2020 at 14:16 Approved by: Rupert Ball M.D. on 09/20/2020 at 14:18
[2020-09-20 14:22] LABS: Magnesium 1.9 mg/dL (1.6-2.3)
[2020-09-20 14:52] LABS: Thyroid Stimulating Hormone 1.07 uIU/mL (0.47-4.68)
[2020-09-20 14:53] LABS: COVID19 -Nasal RAPID Negative (Negative)
[2020-09-20 15:48] VITALS: BP 166/83; PULSE 61; RESP 20; O2SAT 98
== END 2020-09-20 16:20 | disposition home or self-care (01) ==
PROVIDERS: Emergency Provider Emergency Medicine; PCP Internal Medicine
DX: R42 Dizziness and giddiness (principal); R06.02 Shortness of breath; R07.9 Chest pain, unspecified; I65.23 Occlusion and stenosis of bilateral carotid arteries; I10 Essential (primary) hypertension; Z20.822 Contact with and (suspected) exposure to COVID-19
CPT/HCPCS: 36415; 70450; 70496; 70498; 71045; 80053; 82550; 83690; 83735; 83880; 84443; 84484; 85025; 85610; 85730; 87635; 93005; 99283; 99284; C9803; Q9967

== ENCOUNTER → 2020-10-12 12:21 | Outpatient (CLI) | payer MEDICARE, OTHER, SELFPAY ==
[2020-10-12 16:13] LABS: COVID19 -Nasal RAPID Negative (Negative)
== END ==
PROVIDERS: PCP Internal Medicine; Visit Provider Physical Medicine & Rehabilitation
DX: Z20.822 Contact with and (suspected) exposure to COVID-19 (principal)
CPT/HCPCS: 87635; C9803

== ENCOUNTER 2020-10-14 12:50 | Outpatient (CLI) | payer MEDICARE, OTHER, SELFPAY ==
[2020-10-14] VITALS (7 sets, daily range): BP systolic 122–152; BP diastolic 58–78; PULSE 53–65; RESP 10–19; TEMP 36.7; O2SAT 97–99
--- NOTE | 2020-10-14 12:51 | DI.RAD.S_ITS ---
PROCEDURE: PAIN L INTERLAMINAR/CAUDAL INJ INDICATIONS: SPONDYLOSIS COMPARISON: [facility], MR, MR LUMBAR SPINE WO CON, 07/29/2020, 12:28. FINDINGS: Fluoroscopic spot filming was performed to verify placement of a spinal needle at the L4-L5 level, as labeled on the films. Appropriate location of the needle tip was confirmed by injection of iodinated contrast. IMPRESSION: Intraprocedural examination within normal limits. Dictated by: Dc Evans M.D. on 10/14/2020 at 13:59 Approved by: Dc Evans M.D. on 10/14/2020 at 13:59
[2020-10-14] MEDS: MIDAZOLAM 5 MG/5 ML VIAL IV (13:50)
[2020-10-14] MEDS: BETAMETHASONE 30 MG/5 ML MDV 6 MG INJ (13:55)
[2020-10-14] MEDS: IOPAMIDOL 15 ML VIAL 3 ML INJ (13:55)
[2020-10-14] MEDS: BUPIVACAINE 0.25% (PF) VIAL 2 ML INJ (13:55)
[2020-10-14] MEDS: DEXAMETHASONE 10 MG/ML VIAL 20 MG INJ (13:55)
--- NOTE | 2020-10-14 14:00 | P.PCN_ITS ---
Date/Time/Diagnoses Date of procedure: 10/14/20 Time of procedure: 14:00 Pre-procedure diagnosis: 1. HNP WITH RADICULAR FEATURES, 2. MULTILEVEL CENTRAL STENOSIS, Post-procedure diagnosis: same Procedure Notes Procedure: 1. FLUOROSCOPICALLY GUIDED CONTRAST CONTROLLED INTERLAMINAR EPIDURAL STEROID INJECTION -L4/5 Indications: Suleman is referred by Dr. Pryor for treatment of Bilateral Foraminal Stenosis R>L LE symptoms. Physician: Tony Walker Total Fluoroscopy time (seconds): 4 Total sedation minutes: 7 Complications: none Procedure in detail & Post-procedure care: FINDINGS Multilevel Central Spinal Stenosis with Nerve Root Compression DESCRIPTION OF PROCEDURE Fluoroscopically guided, contrast-controlled L4/5 translaminar epidural steroid injection. Following review of allergy and review of potential side effects and complications, including, but not necessarily limited to, infection, allergic reaction, local tissue breakdown, temporary as well as permanent nerve injury, paralysis, stroke and possible , the patient indicated that the patient understood and agreed to proceed. An informed consent document was signed by the patient, witnessed by a nurse, and placed in the patient's chart. Additionally, other treatment options including modalities, medications, and physical therapy were reviewed with the patient. After review of previous anaesthesic history and IV conscious sedation the patient was deemed safe to proceed with today?s procedure with IV conscious sedation as ASA class II designation. Safety time-out was performed to confirm patient ID, procedure to be performed and site of procedure. IV sedation was accomplished with a combination of 2mg of Versed was administered by the RN after DO order, titrated to patient comfort during the course of the procedure while the patient remained responsive to all verbal commands In the prone position, following sterile prep and drape of the lumbar region, the L4/5 translaminar space was identified fluoroscopically. The skin was anesthetized via a 25-gauge, 1.5inch needle with 1% lidocaine solution. At this point, a 22-gauge short bevel spinal needle was atraumatically introduced and ad vanced under fluoroscopic guidance into the region of the L4/5 translaminar space. Depth was confirmed on lateral view. Radiological data, including multiple fluoroscopic views of the lumbar spine, reveal a spinal needle at the L4/5 translaminar space. Lateral views then show placement of the needle in the epidural space. Subsequent views show contrast material flowing superiorly and inferiorly in the epidural space. No vascular or intrathecal uptake is observed. At this point, using loss of resistance technique with saline and air, the epidural space was entered. This was confirmed following negative aspiration with injection of approximately 1.5cc of Isovue 200, showing excellent epidural flow without vascular or intrathecal uptake. At this point, 1cc of 1% lidocaine solution combined with 3cc or 20mg of dexamethasone and 6mg betamethasone was injected without incident. The patient tolerated the procedure well without signs or symptoms of complications prior to transfer to the recovery area continued monitoring without incident. The patient was then transferred to the recovery area where they were observed for an appropriate period of time after the injection. The patient reported a VAS score of 6 prior to the procedure and a post- procedure VAS of 0. POST OP INSTRUCTIONS The patient was provided a Pain Log to continue to record their response to the target-specific procedure prior to follow-up visit with their referring physician. Additionally, specific post-injection care instructions and a contact number to our office were provided if concerns arise regarding possible complications associated with the procedure are suspected.
== END 2020-10-14 14:25 | disposition home or self-care (01) ==
PROVIDERS: PCP Internal Medicine; Referring Provider Physical Medicine & Rehabilitation; Visit Provider Physical Medicine & Rehabilitation
DX: M51.16 Intervertebral disc disorders with radiculopathy, lumbar region (principal); M48.061 Spinal stenosis, lumbar region without neurogenic claudication
CPT/HCPCS: 62323; J0702; J1100; J2250; J3010

== ENCOUNTER → 2020-12-31 13:32 | Outpatient (CLI) | payer MEDICARE, OTHER, SELFPAY ==
[2020-12-31 14:30] LABS: Hemoglobin A1C% w Est Avg Glu 5.2 % (4.0-6.0)
[2020-12-31 14:37] LABS: C-Reactive Protein Quant < 0.5 mg/dL (<1.0)
[2020-12-31 15:16] LABS: Erythrocyte Sedimentation Rate 5 MM/HR (0-15)
[2020-12-31 15:17] LABS: Thyroid Stimulating Hormone 0.547 uIU/mL (0.47-4.68)
[2021-01-02 13:08] LABS: ANA Screen, IFA Negative (.)
== END ==
PROVIDERS: PCP Internal Medicine; Referring Provider Ophthalmology; Visit Provider Ophthalmology
DX: H50.21 Vertical strabismus, right eye (principal)
CPT/HCPCS: 36415; 83036; 84443; 85651; 86038; 86140

== ENCOUNTER → 2021-02-07 12:56 | Outpatient (ROUT) | payer MEDICARE, OTHER, SELFPAY ==
[2021-02-09 15:11] LABS: Acetylcholine Receptor Bind AB <0.03 nmol/L (0.00-0.24)
== END ==
PROVIDERS: PCP Internal Medicine; Visit Provider Ophthalmology
DX: R07.9 Chest pain, unspecified (principal)
CPT/HCPCS: 83519

== ENCOUNTER → 2021-02-16 13:19 | Outpatient (CLI) | payer MEDICARE, OTHER, SELFPAY ==
--- NOTE | 2021-03-16 10:00 | P.HOLT.S_ITS ---
Medical Aides Teacher Report Referral & Results Date Patient Seen: 02/16/21 Requesting provider: Tate Pryor Indication: Palpitations Duration of monitoring (days): 7 Diary information: There were 2 patient triggered events and 1 patient diary entry These 3 patient events were associated with sinus rhythm only Data: Minimum heart rate identified was 46 beats per minute at 04:57 on 02/21/2021 Maximum sinus heart rate was 116 beats per minute at 13:23 on 02/21/2021 Maximum overall heart rate was 152 beats per minute at 17:11 on 02/21/2021 du ring a 4 beat run of SVT/atrial tachycardia Less than 1% of identified beats were ventricular or supraventricular ectopic in origin, which would classify them as rare. Therefore runs of SVT/atrial tachycardia the fastest being the 4 beat run noted above at 152 beats per minute, the longest lasting 10 beats at a rate of 129 beats per minute Second-degree AV block Mobitz type 1 was also identified Impression: Basically normal 7 day teletypesetter monitor. Very rare very brief runs of SVT identified as above Based on patient events, sense of palpitations does not appear to be associated with any cardiac dysrhythmia
== END ==
PROVIDERS: PCP Internal Medicine; Referring Provider Internal Medicine; Visit Provider Internal Medicine
DX: R00.2 Palpitations (principal); R55 Syncope and collapse
CPT/HCPCS: 93242; 93244

== ENCOUNTER → 2021-05-27 08:41 | Outpatient (CLI) | payer MEDICARE, OTHER, SELFPAY ==
--- NOTE | 2021-05-27 | DI.US.S_ITS ---
PROCEDURE: US PERIPH VENOUS LOW EXTREM RT INDICATIONS: Is TECHNIQUE: Real-time imaging, as well as color and pulse Doppler interrogation, were performed of the lower extremity deep veins from the inguinal ligament to the popliteal fossa. COMPARISON: None. FINDINGS: Partially occlusive deep venous thrombosis involving the femoral vein (SFV) from proximal to the mid segment. Distal femoral vein appears occluded. Partially occlusive clot involving the popliteal vein. IMPRESSION: Right lower extremity deep venous thrombosis. Findings were personally telephoned and discussed with Dr. Núñez by the lodge attendant at 1445 hours on 05/27/21. Dictated by: Walt Nobles M.D. on 05/27/2021 at 14:50 Approved by: Walt Nobles M.D. on 05/27/2021 at 14:54
--- NOTE | 2021-05-27 08:45 | DI.CT.S_ITS ---
PROCEDURE: CT ANGIO CHEST PE PROTOCOL INDICATIONS: Shortness of breath TECHNIQUE: After the administration of intravenous contrast, 2 mm thick sections acquired from the pulmonary apices to the posterior costophrenic angles. Maximum intensity projection (MIP) coronal and sagittal reformats were then acquired through the thorax. For radiation dose reduction, the following was used: automated exposure control, adjustment of mA and/or kV according to patient size. COMPARISON: None. FINDINGS: Image quality: Excellent. Pulmonary arteries: There are several filling defects and the right middle and right lower lobe segmental pulmonary arteries consistent with pulmonary embolism. The right pulmonary artery diameter is 3.3 cm, upper limits of normal. Left pulmonary artery clear. Lungs and pleura: Mild bibasilar atelectasis noted particularly in the right lung base. Mediastinum: Heart size is normal, and there is no evidence of right heart strain. No evidence of aortic aneurysm. Mild atherosclerotic vascular calcification present. Moderate hiatal hernia present. Bones and chest wall: No suspicious bony lesions. Ribs and thoracic spine appear intact throughout. Thyroid gland unremarkable. No axillary or supraclavicular adenopathy. Abdomen: Visualized upper abdominal solid organs appear normal in the early arterial phase of enhancement. IMPRESSION: 1. Positive pulmonary embolism. There are right lower lobe and right middle lobe segmental pulmonary emboli without evidence of right heart strain. Pulmonary artery diameter however is upper limits of normal which may reflect an element of hypertension. 2. Minimal bibasilar atelectasis, right greater than left. 3. Moderate hiatal hernia. Approved by: George Aldrich M.D. on 05/27/2021 at 9:47
[2021-05-27 09:17] LABS: Add Manual Diff / Slide Review NO; Basophils Absolute Auto 0 /uL (0-100); Basophils Percent Auto 0.5 % (0-2); Eosinophils Absolute Auto 100 /uL (0-450); Eosinophils Percent Auto 2.2 % (2-4); Hematocrit 42.4 % (41-53); Hemoglobin 14.1 g/dL (13.5-17.5); Lymphocytes Absolute Auto 1000 /uL (1100-4500); Lymphocytes Percent Auto 16.4 % (25-40); Mean Corpuscular HGB Conc 33.2 % (30-36); Mean Corpuscular Volume 96.5 fL (80-100); Monocytes Absolute Auto 500 /uL (0-900); Monocytes Percent Auto 8.2 % (3-14); Neutrophils Absolute Auto 4600 /uL (1500-7000); Neutrophils Percent Auto 72.7 % (50-75); Platelet Count 165 X10^3/uL (150-400); Red Blood Cell Count 4.39 X10^6/uL (4.5-5.9); Red Cell Distribution Width 13.3 % (11.6-14.8); White Blood Cell Count 6.3 X10^3/uL (4.5-11.0)
[2021-05-27 09:30] LABS: Alanine Aminotransferase 16 IU/L (<50); Albumin 3.5 g/dL (3.5-5.0); Albumin Globulin Ratio 1.3 (1.0-2.8); Alkaline Phosphatase 79 U/L (38-126); Aspartate Aminotransferase 24 IU/L (17-59); BUN Creatinine Ratio 17.5 (6-22); Bilirubin Total 0.8 mg/dL (0.2-1.3); Blood Urea Nitrogen 17 mg/dL (9-20); Calcium 8.7 mg/dL (8.4-10.2); Carbon Dioxide 26 mmol/L (22-32); Chloride 107 mmol/L (98-107); Estimated Glomerular Filt Rate > 60.0 mL/min (>60); Globulin 2.8 g/dL (1.7-4.1); Glucose 86 mg/dL (80-110); HEMOLYSIS < 15 (0-50); Potassium 4.1 mmol/L (3.4-5.1); Sodium 139 mmol/L (137-145); Total Protein 6.3 g/dL (6.3-8.2)
== END ==
PROVIDERS: PCP Internal Medicine; Referring Provider Internal Medicine; Visit Provider Internal Medicine
DX: I26.99 Other pulmonary embolism without acute cor pulmonale (principal); I82.411 Acute embolism and thrombosis of right femoral vein; I82.431 Acute embolism and thrombosis of right popliteal vein; K44.9 Diaphragmatic hernia without obstruction or gangrene; R06.02 Shortness of breath; R60.0 Localized edema
CPT/HCPCS: 36415; 71275; 80053; 85025; 93971; Q9967

== ENCOUNTER → 2021-06-10 11:07 | Outpatient (CLI) | payer MEDICARE, OTHER, SELFPAY ==
--- NOTE | 2021-06-10 | DI.CT.S_ITS ---
PROCEDURE: CT ANGIO CHEST PE PROTOCOL INDICATIONS: Multiple subsegmental pulmonary emboli without acute cor pul TECHNIQUE: After the administration of intravenous contrast, 2 mm thick sections acquired from the pulmonary apices to the posterior costophrenic angles. 3-dimensional maximum intensity projection (MIP) coronal and sagittal reformats were then acquired through the thorax. For radiation dose reduction, the following was used: automated exposure control, adjustment of mA and/or kV according to patient size. COMPARISON: [facility], CT, CT ANGIO CHEST PE PROTOCOL, 05/27/2021, 9:57. FINDINGS: Image quality: Excellent. Pulmonary arteries: Pulmonary arteries are normal in size, and demonstrate no intraluminal filling defects to suggest central pulmonary embolism. Resolution of multiple bilateral pulmonary emboli in short interval follow-up. Lungs and pleura: Lungs are clear. No pleural effusions or pneumothorax. Central and peripheral airways are patent. Mediastinum: Heart size is normal, without pericardial effusion. Mild to moderate coronary artery calcifications. No mediastinal or hilar adenopathy. Thoracic aorta is normal in caliber and enhancement. Esophagus is normal in caliber. Moderate hiatal hernia. Bones and chest wall: No suspicious bony lesions. Ribs and thoracic spine appear intact throughout. Thyroid gland is unremarkable as visualized. No axillary or supraclavicular adenopathy. Abdomen: Visualized upper abdominal solid organs appear normal in the early arterial phase of enhancement. IMPRESSION: 1. Resolution of previous pulmonary emboli. No acute pulmonary emboli. 2. No evidence acute pulmonary process. 3. Coronary artery disease. 4. Moderate hiatal hernia. Dictated by: Lake Butts M.D. on 06/10/2021 at 11:53 Approved by: Lake Butts M.D. on 06/10/2021 at 11:56
== END ==
PROVIDERS: PCP Internal Medicine; Referring Provider Internal Medicine; Visit Provider Internal Medicine
DX: I26.94 Multiple subsegmental thrombotic pulmonary emboli without acute cor pulmonale (principal); I25.10 Atherosclerotic heart disease of native coronary artery without angina pectoris; K44.9 Diaphragmatic hernia without obstruction or gangrene
CPT/HCPCS: 71275; Q9967

== ENCOUNTER → 2021-06-16 08:57 | Outpatient (CLI) | payer MEDICARE, OTHER, SELFPAY ==
--- NOTE | 2021-06-16 | DI.ECHO.S_ITS ---
[facility] +---------+ : : [address] : : : : [id number] : : : : Phone: [phone]+ Echocardiogram Report + + :Name: GREGORIA CARABALLO Study Date: 06/16/2021 Height: 73 in : :[facility] ReadingLocation: Weight: 183 lb : : Gender: Male BSA: 2.1 m2 : :: 1945 Age: 75 yrs BP: 141/83 mmHg: :Reason For Study: SOB : :Ordering Physician: NAKUL, : :DORIAN Loo Performed By: Raz Goldman : :Referring: DORIAN MOTA : + + Interpretation Summary The left ventricle is normal in size and wall thickness. Left ventricular systolic function is normal. The ejection fraction is estimated to be 55-60%. This is unchanged compared to the previous study. There are no focal wall motion abnormalities. Diastolic parameters suggest a relaxation abnormality of the left ventricle, consistent with probable normal filling pressures. The right ventricle is normal in size and function. The right ventricular systolic pressure is estimated to be at least 24 mmHg based on an estimated right atrial pressure of 3 mm Hg. Both atria are normal in size. There is mild aortic regurgitation. Compared to the prior echo study, there has been an increase in the severity of aortic regurgitation. There is no other significant valvular heart disease. The ascending aorta is mildly enlarged. Procedure: A two-dimensional transthoracic echocardiogram with color flow and Doppler was performed. The study quality was technically adequate. Comparison is made with the echocardiogram of 01/14/2014. Left Ventricle: The left ventricle is normal in size and wall thickness. Left ventricular systolic function is normal. The ejection fraction is estimated to be 55-60%. This is unchanged compared to the previous study. There are no focal wall motion abnormalities. Diastolic parameters suggest a relaxation abnormality of the left ventricle, consistent with probable normal filling pressures. Right Ventricle: The right ventricle is normal in size and function. Atria: Both atria are normal in size. There is no Doppler evidence for an interatrial shunt. Mitral Valve: The mitral valve is normal in structure and function. There is trace mitral regurgitation. Aortic Valve: There is mild aortic valve sclerosis. There is mild aortic regurgitation. Compared to the prior echo study, there has been an increase in the severity of aortic regurgitation. Tricuspid Valve: The tricuspid valve is normal in structure and function. There is mild tricuspid regurgitation. The right ventricular systolic pressure is estimated to be at least 24 mmHg based on an estimated right atrial pressure of 3 mm Hg. Pulmonic Valve: The pulmonic valve is normal in structure and function. There is a trace or physiologic amount of pulmonic regurgitation. There is no other significant valvular heart disease. Great Vessels: The aortic root is normal size. The ascending aorta is mildly enlarged. The IVC is of normal diameter and collapses greater than 50% with a sniff. This suggests a low right atrial pressure of 3 mm Hg. Pericardium/ Pleura There is no pericardial effusion. There is no pleural effusion. MMode/2D Measurements & Calculations LVIDd: 5.2 cm LVOT diam: 2.4 cm LVIDs: 3.4 cm Ao root diam: 3.8 cm FS: 34.6 % asc Aorta Diam: 3.9 cm IVSd: 0.80 cm LVPWd: 0.90 cm LV west. diameter/BSA (cm/m^2): 2.5 LV sys. diameter/BSA (cm/m^2): 1.6 LA dimension: 3.8 cm RA long axis: 5.4 cm LA A2 area: 18.2 cm2 RA area: 16.7 cm2 LA A4 area: 15.6 cm2 RA vol: 44.3 ml LA length (vol): 5.7 cm RA : 21.4 ml/m2 LA vol: 42.3 ml LA vol index: 20.4 ml/m2 TAPSE_phl: 2.1 cm Doppler Measurements & Calculations Ao V2 max: 162.0 cm/sec LVOT Max Jorge: 93.3 cm/sec Ao V2 mean: 121.0 cm/sec LV V1 max P.5 mmHg Ao max P.0 mmHg LV V1 VTI: 18.9 cm Ao mean P.0 mmHg DWIGHT(I,D): 2.4 cm2 Ao V2 VTI: 34.9 cm DWIGHT(V,D): 2.6 cm2 sev ratio: 0.54 DWIGHT indexed to BSA (cm^2/m^2): 1.2 AI P1/2t: 687.1 msec AI dec slope: 188.0 cm/sec2 MV E max jorge: 39.8 cm/sec TR max jorge: 226.5 cm/sec MV A max jorge: 52.7 cm/sec TR max P.5 mmHg MV E/A: 0.76 Med Peak E' Jorge: 5.7 cm/sec E/E' med: 7.0 Lat Peak E' Jorge: 9.2 cm/sec E/E' lat: 4.3 E/e' average: 5.7 MV dec time: 0.38 sec SV(LVOT): 85.5 ml AV P1/2t-pr_phl: 687.0 msec AV VR_phl: 0.58 DWIGHT(VTI)/BSA_phl: 1.2 MV P1/2t-pr_phl: 112.0 msec Reading Physician:02:26 PM
== END ==
PROVIDERS: PCP Internal Medicine; Referring Provider Internal Medicine; Visit Provider Internal Medicine
DX: I08.2 Rheumatic disorders of both aortic and tricuspid valves (principal); I77.89 Other specified disorders of arteries and arterioles; R06.02 Shortness of breath; R60.0 Localized edema
CPT/HCPCS: 93306

== ENCOUNTER → 2021-08-08 08:58 | Outpatient (CLI) | payer MEDICARE, OTHER, SELFPAY ==
[2021-08-08 09:49] LABS: COVID19 -Nasal RAPID Negative (Negative)
--- NOTE | 2021-08-10 09:01 | PM.PFT.1 ---
Pulmonary Function Test Referral & Results Date Patient Seen: 08/08/21 Requesting provider: Tony Núñez Results: The spirometry demonstrates an FVC of 4.42 L which is 94% of predicted. The FEV1 was measured at 3.25 L which is 96% of predicted. The FEV1/FVC ratio was 73 which is 102% of predicted. Following the administration of bronchodilator there was a 17% improvement in FEV1 and a 104% improvement in FEF 25-75% Lung volumes show an SVC of 4.80 L which is 98% of predicted. The diffusing capacity was measured at 22.08 which is 60% of predicted. No hemoglobin value was provided, so no correction for potential anemia could be made, if appropriate. The maximum voluntary ventilation was reduced Interpretation: This study demonstrates normal spirometry however there is evidence of significant benefit even to the normal numbers after bronchodilator was administered. Diffusing capacity is moderately reduced suggesting disease at the capillary alveolar level as well Clinical correlation suggested
== END ==
PROVIDERS: PCP Internal Medicine; Referring Provider Internal Medicine; Visit Provider Internal Medicine
DX: R06.02 Shortness of breath (principal); Z20.822 Contact with and (suspected) exposure to COVID-19
CPT/HCPCS: 87635; 94060; 94726; 94729; C9803

== ENCOUNTER 2021-10-20 14:42 | Emergency (ER) | payer MEDICARE, OTHER, SELFPAY ==
[2021-10-20 14:51] VITALS: BP 159/75; PULSE 62; RESP 14; TEMP 35.9; O2SAT 98; BMI 23.0
[2021-10-20 15:09] LABS: Add Manual Diff / Slide Review NO; Basophils Absolute Auto 0 /uL (0-100); Basophils Percent Auto 0.2 % (0-2); Eosinophils Absolute Auto 100 /uL (0-450); Eosinophils Percent Auto 1.2 % (2-4); Hematocrit 41.1 % (41-53); Hemoglobin 14.4 g/dL (13.5-17.5); Lymphocytes Absolute Auto 900 /uL (1100-4500); Mean Corpuscular HGB Conc 35.1 % (30-36); Mean Corpuscular Hemoglobin 33.2 PG (26-34); Mean Corpuscular Volume 94.6 fL (80-100); Monocytes Absolute Auto 500 /uL (0-900); Monocytes Percent Auto 7.7 % (3-14); Neutrophils Absolute Auto 5000 /uL (1500-7000); Neutrophils Percent Auto 76.9 % (50-75); Platelet Count 165 X10^3/uL (150-400); Red Blood Cell Count 4.34 X10^6/uL (4.5-5.9); Red Cell Distribution Width 13.4 % (11.6-14.8); White Blood Cell Count 6.5 X10^3/uL (4.5-11.0)
[2021-10-20 15:22] LABS: INR 1.1 (0.9-1.3); Prothrombin Time 12.4 SECONDS (10.1-12.7)
[2021-10-20 15:25] LABS: PTT Partial Thromboplastin Tim 33 SECONDS (26.4-36.2)
[2021-10-20 15:43] LABS: Alanine Aminotransferase 16 IU/L (<50); Albumin 3.8 g/dL (3.5-5.0); Albumin Globulin Ratio 1.4 (1.0-2.8); Alkaline Phosphatase 53 U/L (38-126); Aspartate Aminotransferase 24 IU/L (17-59); BUN Creatinine Ratio 19.2 (6-22); Bilirubin Total 0.7 mg/dL (0.2-1.3); Blood Urea Nitrogen 20 mg/dL (9-20); Calcium 8.9 mg/dL (8.4-10.2); Carbon Dioxide 28 mmol/L (22-32); Chloride 108 mmol/L (98-107); Estimated Glomerular Filt Rate > 60.0 mL/min (>60); Globulin 2.7 g/dL (1.7-4.1); Glucose 100 mg/dL (80-110); HEMOLYSIS 30 (0-50); Lipase 71 U/L (23-300); Potassium 4.1 mmol/L (3.4-5.1); Sodium 140 mmol/L (137-145); Total Protein 6.5 g/dL (6.3-8.2)
[2021-10-20 15:56] LABS: Bacteria Urine None Seen; Culture Indicated Urine Cult Not Indicated; Mucus Urine 2+ (Negative); RBC Urine 0-1/HPF (0-5/HPF); WBC Urine 1-5/HPF (0-5/HPF)
--- NOTE | 2021-10-20 16:29 | DI.US.S_ITS ---
PROCEDURE: US ABDOMEN LIMITED INDICATIONS: left groin hernia and left abdominal hernia TECHNIQUE: Real-time focused scanning was performed of the abdomen, with image documentation. COMPARISON: [facility], , US ABDOMEN COMPLETE, 06/28/2018, 15:17. FINDINGS: There is a left inguinal hernia protruding through an 18 mm defect. IMPRESSION: Left inguinal hernia Dictated by: Jefe Ren M.D. on 10/20/2021 at 17:37 Approved by: Jefe Ren M.D. on 10/20/2021 at 17:38
--- NOTE | 2021-10-20 16:31 | ED.ABDPAIN ---
HPI - Abdominal Pain <RACHAEL Quintero - Last Filed: 10/20/21 20:53> General Chief Complaint: Abdominal Pain Stated Complaint: Swelling/pain in groin Time Seen by Provider: 10/20/21 15:10 Source: patient Mode of arrival: Ambulatory History of Present Illness HPI narrative: 76-year-old male presents to the emergency department with multiple complaints including left groin pain with swelling that has gone down which started this morning, left-sided abdominal pain with a lump there that has also gone down, and right ear pain for approximately 1 week. Patient denies any recent fever, nausea vomiting, diarrhea, shortness of breath, wheezing. He denies any hearing changes out of his right ear but does wear hearing aids at baseline bilaterally. Denies any mental status changes, dizziness, altered gait. He denies any urinary retention, dysuria, urinary frequency, or rectal pain. He denies any constipation or changes to his stools. patient states he took some Tylenol this morning for this pain. Patient states he has a history of right-sided hernia repair in the past without complication. Related Data Home Medications Medication Instructions Recorded Confirmed cholecalciferol (vitamin D3) 50 50 mcg PO DAILY 05/07/20 10/27/21 mcg (2,000 unit) tablet (Vitamin D3) lactobacillus combination no.4 3 3,000 mmu cells PO DAILY 05/07/20 10/27/21 billion cell capsule (Probiotic) losartan 25 mg tablet 25 mg PO BID 05/07/20 10/27/21 omeprazole 20 mg capsule,delayed 20 mg PO BID 05/07/20 10/27/21 release cialis PO PRN 10/13/21 10/27/21 metronidazole 1 % topical gel 1 applic TOPICAL .PRN g 10/27/21 10/27/21 tadalafil 5 mg tablet 5 mg PO DAILY 10/27/21 10/27/21 trazodone 50 mg tablet 50 mg PO DAILY 10/27/21 10/27/21 Allergies Allergy/AdvReac Type Severity Reaction Status Date / Time cyclobenzaprine Allergy Intermediate Drowsy Verified 10/27/21 13:47 [From Flexeril] Review of Systems <RACHAEL Quintero - Last Filed: 10/20/21 20:53> Review of Systems Narrative: General: denies fever, chills, malaise, sweats, fatigue Head/Neck: denies headache, neck pain, dizziness Eyes: denies visual changes, eye pain Cardio: denies chest pain, palpitations, edema Respiratory: denies dyspnea, cough, orthopnea GI: denies abdominal pain, nausea, vomiting, or diarrhea : denies dysuria, hematuria, urinary retention, frequency or incontinence, endorses left sided inguinal lump and left abdominal lump associated with pain MSK: denies joint pain, muscle weakness Skin: denies rash, itching, skin lesions or other Neuro: denies numbness, tingling Patient History <RACHAEL Quintero - Last Filed: 10/20/21 20:53> Medical History Chicken pox Facet arthropathy, lumbar Foot pain (~2019) Hearing loss Hemorrhoid Hypertension Incontinence without sensory awareness Lumbar radiculopathy Rosacea (~2009) Skin cancer (~2019) Sleep apnea (~2004) Wears glasses Surgical History Anesthesia H/O cataract removal with insertion of prosthetic lens History of hernia surgery Hx of eye surgery Family History Father Pneumonia Mother Dementia Alzheimer disease Grandfather Cancer Social History household members: spouse Smoking Status: Former smoker alcohol intake: current Smoking Status: Former smoker alcohol intake frequency: 0-2 drinks per day Substance Use Type: does not use Exam <RACHAEL Quintero - Last Filed: 10/20/21 20:53> Narrative Exam Narrative: Independently reviewed vitals signs and nursing notes. General: Cooperative, comfortable, in no acute distress, well developed and well groomed Head/Neck: Normal visual inspection and supple, atraumatic, no JVD or lymphadenopathy. Normal facial exam Eyes: Pupils equal round and reactive, EOMI, conjunctiva normal, no scleral icterus or injections Nose: External nose normal, nares patent, no rhinorrhea, without purulent drainage Mouth/Throat: uvula midline, moist mucus membranes Cardio: Regular rate and rhythm, no peripheral edema, warm extremities Respiratory: Normal respiratory effort, able to speak in complete sentences without audible wheezing, stridor, or rales. No retractions. GI: Abdomen soft, nontender to palpation, small 2 cm palpable hernia approximately 2 in to the left of the umbilicus, reducible, abdomen nondistended, no masses or exquisite tenderness with exam, no flank tenderness, no erythema or discoloration. : Left inguinal hernia approximately 4 cm, reducible, tenderness to palpation, without any surrounding erythema, discoloration, ecchymosis MSK: Moves all extremities, neurovascularly intact Skin: Normal capillary refill, no rash Neuro: Normal speech and cognition, normal gait, A&O x3, tone normal, moves all extremities Psych: Mental status is grossly normal, speech is clear, congruent mood, normal affect Initial Vital Signs Initial Vital Signs: Vital Signs Temperature 96.7 F L 10/20/21 14:51 Pulse Rate 62 10/20/21 14:51 Respiratory Rate 14 10/20/21 14:51 Blood Pressure 159/75 H 10/20/21 14:51 Pulse Oximetry 98 10/20/21 14:51 <Vinny Kilpatrick DO - Last Filed: 10/27/21 18:04> Initial Vital Signs Initial Vital Signs: Vital Signs Temperature 96.7 F L 10/20/21 14:51 Pulse Rate 62 10/20/21 14:51 Respiratory Rate 14 10/20/21 14:51 Blood Pressure 159/75 H 10/20/21 14:51 Pulse Oximetry 98 10/20/21 14:51 Course <MICHAEL QuinteroP - Last Filed: 10/20/21 20:53> Orders Ordered: Discontinued Medications Ibuprofen (Ibuprofen 400 Mg Tablet) 600 mg PO NOW ONE Stop: 10/20/21 16:31 Last Admin: 10/20/21 16:58 Dose: 600 mg Documented by: MARIAELENA Vital Signs Vital signs: Vital Signs - 8 hr 10/20/21 14:51 10/20/21 17:48 Temperature 96.7 F L Pulse Rate 62 59 L Respiratory Rate 14 18 Blood Pressure 159/75 H 169/59 H Pulse Oximetry 98 100 <Vinny Kilpatrick DO - Last Filed: 10/27/21 18:04> Orders Ordered: Discontinued Medications Ibuprofen (Ibuprofen 400 Mg Tablet) 600 mg PO NOW ONE Stop: 10/20/21 16:31 Last Admin: 10/20/21 16:58 Dose: 600 mg Documented by: MARIAELENA Vital Signs Vital signs: Vital Signs - 8 hr 10/20/21 14:51 10/20/21 17:48 Temperature 96.7 F L Pulse Rate 62 59 L Respiratory Rate 14 18 Blood Pressure 159/75 H 169/59 H Pulse Oximetry 98 100 MDM - Abdominal Pain <RACHAEL Quintero - Last Filed: 10/20/21 20:53> Lab Data Result diagrams: 10/20/21 15:00 10/20/21 15:00 Labs: Lab Results 10/20/21 10/20/21 10/20/21 Range/Units 15:00 15:00 15:00 WBC 6.5 (4.5-11.0) X10^3/uL RBC 4.34 L (4.5-5.9) X10^6/uL Hgb 14.4 (13.5-17.5) g/dL Hct 41.1 (41-53) % MCV 94.6 (80-100) fL MCH 33.2 (26-34) PG MCHC 35.1 (30-36) % RDW 13.4 (11.6-14.8) % Plt Count 165 (150-400) X10^3/uL Neut % (Auto) 76.9 H (50-75) % Lymph % (Auto) 14.0 L (25-40) % [place] % (Auto) 7.7 (3-14) % Eos % (Auto) 1.2 L (2-4) % Baso % (Auto) 0.2 (0-2) % Neut # (Auto) 5000 (0496-0546) /uL Lymph # (Auto) 900 L (2489-2827) /uL [place] # (Auto) 500 (0-900) /uL Eos # (Auto) 100 (0-450) /uL Baso # (Auto) 0 (0-100) /uL PT 12.4 (10.1-12.7) SECONDS INR 1.1 (0.9-1.3) APTT 33 (26.4-36.2) SECONDS Sodium 140 (137-145) mmol/L Potassium 4.1 (3.4-5.1) mmol/L Chloride 108 H (98-107) mmol/L Carbon Dioxide 28 (22-32) mmol/L BUN 20 (9-20) mg/dL Creatinine 1.04 (0.66-1.25) mg/dL Estimated GFR > 60.0 (>60) mL/min BUN/Creatinine Ratio 19.2 (6-22) Glucose 100 (80-110) mg/dL Calcium 8.9 (8.4-10.2) mg/dL Total Bilirubin 0.7 (0.2-1.3) mg/dL AST 24 (17-59) IU/L ALT 16 (<50) IU/L Alkaline Phosphatase 53 (38-126) U/L Total Protein 6.5 (6.3-8.2) g/dL Albumin 3.8 (3.5-5.0) g/dL Globulin 2.7 (1.7-4.1) g/dL Albumin/Globulin Ratio 1.4 (1.0-2.8) Lipase 71 (23-300) U/L Urine RBC (0-5/HPF) Urine WBC (0-5/HPF) Urine Bacteria (None) Urine Mucus (Negative) Ur Culture Indicated? 10/20/21 Range/Units 15:23 WBC (4.5-11.0) X10^3/uL RBC (4.5-5.9) X10^6/uL Hgb (13.5-17.5) g/dL Hct (41-53) % MCV (80-100) fL MCH (26-34) PG MCHC (30-36) % RDW (11.6-14.8) % Plt Count (150-400) X10^3/uL Neut % (Auto) (50-75) % Lymph % (Auto) (25-40) % [place] % (Auto) (3-14) % Eos % (Auto) (2-4) % Baso % (Auto) (0-2) % Neut # (Auto) (4972-1627) /uL Lymph # (Auto) (7291-9066) /uL [place] # (Auto) (0-900) /uL Eos # (Auto) (0-450) /uL Baso # (Auto) (0-100) /uL PT (10.1-12.7) SECONDS INR (0.9-1.3) APTT (26.4-36.2) SECONDS Sodium (137-145) mmol/L Potassium (3.4-5.1) mmol/L Chloride (98-107) mmol/L Carbon Dioxide (22-32) mmol/L BUN (9-20) mg/dL Creatinine (0.66-1.25) mg/dL Estimated GFR (>60) mL/min BUN/Creatinine Ratio (6-22) Glucose (80-110) mg/dL Calcium (8.4-10.2) mg/dL Total Bilirubin (0.2-1.3) mg/dL AST (17-59) IU/L ALT (<50) IU/L Alkaline Phosphatase (38-126) U/L Total Protein (6.3-8.2) g/dL Albumin (3.5-5.0) g/dL Globulin (1.7-4.1) g/dL Albumin/Globulin Ratio (1.0-2.8) Lipase (23-300) U/L Urine RBC 0-1/hpf (0-5/HPF) Urine WBC 1-5/hpf (0-5/HPF) Urine Bacteria None seen (None) Urine Mucus 2+ H (Negative) Ur Culture Indicated? Cult not indicated Point of care testing: Urine Dip Bedside Urine Glucose Negative Bedside Urine Bilirubin - Negative Bedside Urine Ketone - Negative Urine Specific [place] 1.030 Bedside Urine Occult Blood +/- Bedside Urine pH 6.0 Bedside Urine Protein + 30 Bedside Urine Urobilinogen - Negative Bedside Urine Nitrite - Negative Bedside Urine Leukocytes - Negative Esterase Imaging Data US - STREET [employer]: Radiologist's Impression: PROCEDURE: US ABDOMEN LIMITED ? INDICATIONS:? left groin hernia and left abdominal hernia ? TECHNIQUE:? Real-time focused scanning was performed of the abdomen, with image documentation.? ? COMPARISON:? [facility], US, US ABDOMEN COMPLETE, 06/28/2018, 15:17. ? FINDINGS:? There is a left inguinal hernia protruding through an 18 mm defect. ? IMPRESSION:? Left inguinal hernia ? ? Dictated by: Jefe Ren M.D. on 10/20/2021 at 17:37 ? ? Approved by: Jefe Ren M.D. on 10/20/2021 at 17:38 ? MDM Narrative Medical decision making narrative: 76 year old male presents to the emergency department with 1 day complaint of left inguinal lump and pain, left abdominal lump and pain, and right ear pain. Patient was found to have a cerumen impaction in the right ear, this was irrigated and his pain improved. No signs of otitis media, otitis externa or TM rupture. Ultrasound of his left groin shows a reducible inguinal hernia protruding through an 18 mm defect. No signs of strangulation, or ischemic bowel.Patient took Tylenol this morning, received ibuprofen here in the emergency department with some improvement in his pain. Patient is not on anticoagulants. 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 Lab work does not show any leukocytosis, INR is 1.1, electrolytes are within normal range, no elevation in his AST or ALT, T bili is normal, lipase is 71, urine without white blood cells, nitrites, or blood. Patient states his hearing was better after cerumen impaction removal, no signs of acute otitis media, bilateral TMs are pearly nobles, with positive light reflex. Patient was referred to General surgery to follow-up regarding his hernia. He was given instructions on how to prevent pain using scrotal support, manual compression during sneezing or coughing, a belt or snug elastic pants over this area. Patient is appropriate and amenable to discharge home. Vital signs are stable on repeat examination is unremarkable. Patient has been informed of results. Patient has been given strict return to ER precautions for any new or worsening symptoms. Patient understands to follow up closely with outpatient providers as instructed. Patient understands plan and agrees to discharge home. All questions and concerns answered at this time. <Vinny Kilpatrick DO - Last Filed: 10/27/21 18:04> Lab Data Labs: Lab Results 10/20/21 10/20/21 10/20/21 Range/Units 15:00 15:00 15:00 WBC 6.5 (4.5-11.0) X10^3/uL RBC 4.34 L (4.5-5.9) X10^6/uL Hgb 14.4 (13.5-17.5) g/dL Hct 41.1 (41-53) % MCV 94.6 (80-100) fL MCH 33.2 (26-34) PG MCHC 35.1 (30-36) % RDW 13.4 (11.6-14.8) % Plt Count 165 (150-400) X10^3/uL Neut % (Auto) 76.9 H (50-75) % Lymph % (Auto) 14.0 L (25-40) % [place] % (Auto) 7.7 (3-14) % Eos % (Auto) 1.2 L (2-4) % Baso % (Auto) 0.2 (0-2) % Neut # (Auto) 5000 (8292-2518) /uL Lymph # (Auto) 900 L (6433-1840) /uL [place] # (Auto) 500 (0-900) /uL Eos # (Auto) 100 (0-450) /uL Baso # (Auto) 0 (0-100) /uL PT 12.4 (10.1-12.7) SECONDS INR 1.1 (0.9-1.3) APTT 33 (26.4-36.2) SECONDS Sodium 140 (137-145) mmol/L Potassium 4.1 (3.4-5.1) mmol/L Chloride 108 H (98-107) mmol/L Carbon Dioxide 28 (22-32) mmol/L BUN 20 (9-20) mg/dL Creatinine 1.04 (0.66-1.25) mg/dL Estimated GFR > 60.0 (>60) mL/min BUN/Creatinine Ratio 19.2 (6-22) Glucose 100 (80-110) mg/dL Calcium 8.9 (8.4-10.2) mg/dL Total Bilirubin 0.7 (0.2-1.3) mg/dL AST 24 (17-59) IU/L ALT 16 (<50) IU/L Alkaline Phosphatase 53 (38-126) U/L Total Protein 6.5 (6.3-8.2) g/dL Albumin 3.8 (3.5-5.0) g/dL Globulin 2.7 (1.7-4.1) g/dL Albumin/Globulin Ratio 1.4 (1.0-2.8) Lipase 71 (23-300) U/L Urine RBC (0-5/HPF) Urine WBC (0-5/HPF) Urine Bacteria (None) Urine Mucus (Negative) Ur Culture Indicated? 10/20/21 Range/Units 15:23 WBC (4.5-11.0) X10^3/uL RBC (4.5-5.9) X10^6/uL Hgb (13.5-17.5) g/dL Hct (41-53) % MCV (80-100) fL MCH (26-34) PG MCHC (30-36) % RDW (11.6-14.8) % Plt Count (150-400) X10^3/uL Neut % (Auto) (50-75) % Lymph % (Auto) (25-40) % [place] % (Auto) (3-14) % Eos % (Auto) (2-4) % Baso % (Auto) (0-2) % Neut # (Auto) (0555-5304) /uL Lymph # (Auto) (9748-6374) /uL [place] # (Auto) (0-900) /uL Eos # (Auto) (0-450) /uL Baso # (Auto) (0-100) /uL PT (10.1-12.7) SECONDS INR (0.9-1.3) APTT (26.4-36.2) SECONDS Sodium (137-145) mmol/L Potassium (3.4-5.1) mmol/L Chloride (98-107) mmol/L Carbon Dioxide (22-32) mmol/L BUN (9-20) mg/dL Creatinine (0.66-1.25) mg/dL Estimated GFR (>60) mL/min BUN/Creatinine Ratio (6-22) Glucose (80-110) mg/dL Calcium (8.4-10.2) mg/dL Total Bilirubin (0.2-1.3) mg/dL AST (17-59) IU/L ALT (<50) IU/L Alkaline Phosphatase (38-126) U/L Total Protein (6.3-8.2) g/dL Albumin (3.5-5.0) g/dL Globulin (1.7-4.1) g/dL Albumin/Globulin Ratio (1.0-2.8) Lipase (23-300) U/L Urine RBC 0-1/hpf (0-5/HPF) Urine WBC 1-5/hpf (0-5/HPF) Urine Bacteria None seen (None) Urine Mucus 2+ H (Negative) Ur Culture Indicated? Cult not indicated Point of care testing: Urine Dip Bedside Urine Glucose Negative Bedside Urine Bilirubin - Negative Bedside Urine Ketone - Negative Urine Specific [place] 1.030 Bedside Urine Occult Blood +/- Bedside Urine pH 6.0 Bedside Urine Protein + 30 Bedside Urine Urobilinogen - Negative Bedside Urine Nitrite - Negative Bedside Urine Leukocytes - Negative Esterase Discharge Plan Departure Patient Disposition: Home Clinical Impression: Cerumen impaction Qualifiers: Laterality: right Qualified Code(s): H61.21 - Impacted cerumen, right ear Inguinal hernia Qualifiers: Obstruction and gangrene presence: without obstruction or gangrene Laterality: unilateral Recurrence: non-recurrent Qualified Code(s): K40.90 - Unilateral inguinal hernia, without obstruction or gangrene, not specified as recurrent Activity Restrictions/Additional Instructions: *You have been diagnosed withan inguinal hernia on the left. Please follow-up with Dr. Llamas from general surgery to evaluate if this needs to be surgically repaired. Your ultrasound is reassuring that this is not dangerous at this time. You may wear a belt, not underwear, or pants with a stretchy waistband to help hold this in. If it pops out and is painful, please press it back in and come to the emergency department if you are unable to press it back in. Please follow-up with Dr. Núñez so he understands that you are going through this. Please take Tylenol and ibuprofen as necessary for your pain. Please try and keep her ears clean, the wax buildup was hard in your right ear, you may feel better now since this has been removed. You may use Debrox as necessary to help clean out any cerumen in your ear. Please call Dr. Llamas's office and make an appointment for next week. *What to do: *Please continue to take your regular medications as directed. [ ] New medication prescriptions sent to your pharmacy: [ ] [ ] New medication written as a paper prescription [x ] No new medications given *Please follow up with your primary care provider in 2-3 days, call for an appointment. Let them know you were seen in the Emergency Department and that we ask that you be seen in follow up. We will electronically transmit a record of today's note if your PCP is in our system *If you do not have a primary care provider please contact the [facility] Resource line at [phone]. They will ask some questions about your medical history and help get you set up with a doctor in the community. *Return to Emergency Department if you should have any new, worsening or concerning symptoms, such as [fever greater than 101F, chills, worsening pain, persistent vomiting or other bothersome symptoms] Prescriptions: No Action trazodone 50 mg tablet 50 mg PO DAILY 0RF metronidazole 1 % gel 1 applic topical .PRN 0RF tadalafil 5 mg tablet 5 mg PO DAILY 0RF losartan 25 mg tablet 25 mg PO BID 0RF omeprazole 20 mg capsule,delayed release(DR/EC) 20 mg PO BID 0RF cholecalciferol (vitamin D3) [Vitamin D3] 50 mcg (2,000 unit) Tablet 50 mcg PO DAILY 0RF Probiotic 3 billion cell Capsule 3,000 mmu cells PO DAILY 0RF cialis PO PRN0RF Referrals: Tony Núñez MD [Primary Care Provider] - Sharad Llamas MD [Physician] - <Vinny Kilpatrick, - Last Filed: 10/27/21 18:04> [facility]: Dr Kilpatrick Co-Sign Statement: I was available for consultation during this patient's emergency department visit. This chart is signed by myself for administrative purposes only. I did not have direct contact with this patient during this visit. They were seen independently by the APC.
[2021-10-20] MEDS: IBUPROFEN 400 MG TABLET 600 MG PO (16:58)
[2021-10-20 17:48] VITALS: BP 169/59; PULSE 59; RESP 18; O2SAT 100
== END 2021-10-20 17:48 | disposition home or self-care (01) ==
PROVIDERS: Emergency Medicine; Emergency Provider Nurse Practitioner Critical Care Medicine; PCP Internal Medicine
DX: H61.21 Impacted cerumen, right ear (principal); K40.90 Unilateral inguinal hernia, without obstruction or gangrene, not specified as recurrent; Z87.891 Personal history of nicotine dependence
CPT/HCPCS: 36415; 69209; 76705; 80053; 81003; 81015; 83690; 85025; 85610; 85730; 93005; 99284

== ENCOUNTER 2021-12-05 12:30 | Outpatient (RCR) | payer MEDICARE, OTHER, SELFPAY | END 2021-12-05 14:30 | LOC: PUL 12:30 | PROVIDERS: PCP Internal Medicine; Referring Provider Internal Medicine; Visit Provider Internal Medicine | DX: R06.02 Shortness of breath (principal) | CPT/HCPCS: G0237; G0238 ==

== ENCOUNTER → 2021-12-06 09:29 | Outpatient (CLI) | payer MEDICARE, OTHER, SELFPAY ==
[2021-12-06 10:50] LABS: COVID19 -Nasal RAPID Negative (Negative)
== END ==
PROVIDERS: PCP Internal Medicine; Visit Provider Surgery
DX: Z01.812 Encounter for preprocedural laboratory examination (principal); Z20.822 Contact with and (suspected) exposure to COVID-19
CPT/HCPCS: 87635; C9803

== ENCOUNTER 2021-12-07 07:44 | Day surgery (SDC) | payer MEDICARE, OTHER, SELFPAY ==
[2021-12-05 13:17] VITALS: BMI 23.0
[2021-12-07] VITALS (10 sets, daily range): BP systolic 127–157; BP diastolic 66–84; PULSE 54–591; RESP 5–18; TEMP 36.2–36.9; O2SAT 96–100; BMI 23.0
--- NOTE | 2021-12-07 08:17 | P.HP_ITS ---
History of Present Illness History of Present Illness Date Patient Seen: 12/07/21 Time Patient Seen: 08:18 Chief complaint: SDC Narrative: 76-year-old man here for an elective open left inguinal hernia repair. No interval changes in health. Please refer to the H& P from October 2021 for further detail. Patient History Medical History Chicken pox Facet arthropathy, lumbar Foot pain (~2019) Hearing loss Hemorrhoid Hypertension Incontinence of urine Incontinence without sensory awareness Lumbar radiculopathy Rosacea (~2009) Skin cancer (~2019) Sleep apnea (~2004) Wears glasses Surgical History Anesthesia H/O cataract removal with insertion of prosthetic lens History of hernia surgery Hx of eye surgery Family & Social History Family History Father Pneumonia Mother Dementia Alzheimer disease Grandfather Cancer Social History: household members spouse Tobacco & Substance use: Smoking Status Former smoker alcohol intake current alcohol intake frequency 0-2 drinks per day Substance Use Type does not use Meds Home Medications and Allergies Home Medications Medication Instructions Recorded Confirmed Type cholecalciferol (vitamin D3) 50 50 mcg PO DAILY 05/07/20 12/07/21 History mcg (2,000 unit) tablet (Vitamin D3) lactobacillus combination no.4 3 3,000 mmu cells PO DAILY 05/07/20 12/05/21 H istory billion cell capsule (Probiotic) losartan 25 mg tablet 25 mg PO BID 05/07/20 12/07/21 History omeprazole 20 mg capsule,delayed 20 mg PO BID 05/07/20 12/07/21 History release cialis PO 10/13/21 11/08/21 History metronidazole 1 % topical gel 1 applic TOPICAL .PRN g 10/27/21 12/05/21 History tadalafil 5 mg tablet 5 mg PO DAILY 10/27/21 12/07/21 History trazodone 50 mg tablet 50 mg PO DAILY 10/27/21 12/07/21 History Allergies Allergy/AdvReac Type Severity Reaction Status Date / Time cyclobenzaprine AdvReac Intermediate Drowsy Verified 12/07/21 08:09 [From Flexeril] Exam Narrative Exam Narrative: GENERAL: Obese male in no apparent distress HEENT: No scleral icterus CV: Regular rate, no peripheral edema LUNGS: No increased work of breathing. Patient speaks in full sentences without oxygen support. ABDOMEN: Soft, non-tender, non-distended. Left inguinal hernia is marked with my initials Assessment & Plan Assessment and plan (1) Left inguinal hernia: Status: Acute Assessment & Plan narrative: 76-year-old man with a reducible symptomatic left inguinal hernia here for elective open repair. Technical details of the operation were again discussed. Operative risks including bleeding, infection, testicular injury, chronic pain, recurrence were discussed. His questions were answered he is in agreement with this plan. Time Spent With Patient Critical Care time: I spent a total of [] minutes of critical care time on this patient's care today; this time is exclusive of procedural time.
--- NOTE | 2021-12-07 08:22 | P.OP_ITS ---
Operative Date/Time/Diagnoses Date of procedure: 12/07/21 Time of procedure: 08:22 Pre-op diagnosis: Reducible left inguinal hernia Post-op diagnosis: same Procedure & Clinicians Procedure: Open left inguinal hernia repair with mesh Same procedure as scheduled: Yes Indications: Reducible inguinal hernia Surgeon: Sharad Llamas Click Yes if Unassisted: Yes Anesthesia Type: General Operative Notes Findings: moderate size indirect defect. No direct floor defect Specimen(s): none sent Estimated Blood Loss (mL): 20 Procedure in detail: The patient was placed supine on the table and bilateral lower extremity compression devices were applied. Anesthesia was induced they were intubated with an LMA and received Clindamycin. A time-out was performed. They were prepped and draped in sterile fashion. The right external inguinal ring and the anterior superior iliac crest were identified and marked. 1 finger breath above the inguinal ligament the skin was infiltrated with 0.25% bupivacaine. The skin incision was made here and the subcutaneous tissues were divided with electrocautery exposing the external oblique aponeurosis which was then opened along the direction of its fibers. Using blunt dissection the internal oblique aporneurosis was from the external oblique upper leaflet to identify the iliohypogastric nerve. Using a kittner the cord was carefully dissected away from the inguinal canal adjacent to the pubic tubercle. The cord including the vas deferens, testicular bloody supply, ilioguinal and genital nerve were encircled with a [place] drain. No direct floor defect was identified. The cremasteric fibers surrounding the cord were divided using electrocautery adjacent to the internal ring.. The vas deferens and the testicular vessels were preserved and protected. There was a moderate size indirect hernia on the anterior medial aspect of the cord which was skeletonized away from the vas deferens and testicular blood supply. The indirect hernia was skeletonized back to the internal ring. The hernia sac was large and it was ligated with silk suture transected and the stump reduced spontaneously into the abdomen. I selected a 7x 15 cm lightweight Pro Loop hernia mesh. The inferior medial aspect of the mesh was anchored to insertion of the rectus muscle to the pubic tubercle such that there was approximately 2 cm of tubercle overlap with Ethibond and then was secured to the inferior edge of the mesh to the shelving edge of the inguinal ligament. Interrupted 3 0 Vicryl suture was used to anchor the superior aspect of the mesh to the conjoined tendon in several places. The tails were then reapproximated loosely around the spermatic cord. The tails of the mesh were then tucked under the external oblique aponeurosis. The repair was checked for hemostasis. The wound was irrigated with sterile saline. The external oblique aponeurosis was reapproximated in a running fashion using 3 0 Vicryl. The subcutaneous tissues were reapproximated with 3 0 Vicryl skin closed with 4 0 Monocryl followed by the application of Dermabond. At the end of the operation I ensured that both testicles were within the scrotum. The sponge instrument count at the end operation was correct. The patient emerged from anesthesia was extubated and transferred to the postoperative care unit in stable condition. A total of 30 ml of of 0.25% bupivicaine was used to infiltrate the skin. Complications: none Post-operative Condition: stable Disposition: Acute Care
[2021-12-07] MEDS: LACTATED RINGERS 1,000 ML 100 ML IV (08:25)
--- NOTE | 2021-12-07 08:29 | SUR.OPER ---
Supine on padded OR bed, head on pillow, arms secured on padded arm boards at <90 degrees abduction, legs uncrossed, safety belt at thigh, tape over blanket over lower legs.
[2021-12-07] MEDS: CEFAZOLIN 2 GM/20 ML SYRINGE IV (08:45)
[2021-12-07] MEDS: BUPIVACAINE 0.25% (PF) VIAL 30 ML INJ (09:05)
--- NOTE | 2021-12-07 09:45 | SUR.OPER ---
Supine on padded OR bed, head on pillow, arms secured on padded arm boards at <90 degrees abduction, legs uncrossed, safety belt at thigh, tape over blanket over lower legs.PILLOW UNDER KNEES
--- NOTE | 2021-12-07 09:45 | SUR.OPER ---
BOTH HEARING AIDS , GLASSES AND PARTIAL PLATE TO PACU WITH PT
[2021-12-07] MEDS: OXYCODONE/ACETAMINOPHEN 5/325 TABLET 1 TAB PO (10:15)
== END 2021-12-07 10:45 | disposition home or self-care (01) ==
PROVIDERS: PCP Internal Medicine; Referring Provider Surgery; Visit Provider Surgery
PROC: (CPT 49505; principal; 2021-12-07 09:15)
DX: K40.90 Unilateral inguinal hernia, without obstruction or gangrene, not specified as recurrent (principal); I10 Essential (primary) hypertension; G47.33 Obstructive sleep apnea (adult) (pediatric); K21.9 Gastro-esophageal reflux disease without esophagitis
CPT/HCPCS: 49505; 82962; J0690; J1100; J1885; J2405; J2704; J3010

== ENCOUNTER 2022-03-31 09:55 | Emergency (ER) | payer MEDICARE, OTHER, SELFPAY ==
[2022-03-31 10:14] VITALS: BP 170/74; PULSE 56; RESP 18; TEMP 36.2; O2SAT 100; BMI 22.1
--- NOTE | 2022-03-31 10:46 | DI.US.S_ITS ---
PROCEDURE: US [facility] VENOUS LOW EXTREM RT INDICATIONS: right calf pain , dvt last year in same leg, same pain TECHNIQUE: Real-time imaging, as well as color and pulse Doppler interrogation, were performed of the lower extremity deep veins from the inguinal ligament to the popliteal fossa. COMPARISON: [facility], , [facility] VENOUS LOW EXTREM RT, 05/27/2021, 14:12. FINDINGS: The common femoral, femoral and popliteal veins are normally compressible, and free of intraluminal thrombus. Color and pulse Doppler demonstrate normal phasic intraluminal flow. There is normal augmentation response to distal compression maneuver. IMPRESSION: Negative for deep venous thrombosis of the right lower extremity. Dictated by: Derek Roger M.D. on 03/31/2022 at 11:10 Approved by: Derek Roger M.D. on 03/31/2022 at 11:10
--- NOTE | 2022-03-31 12:14 | ED.EXTPRO ---
HPI - Extremity Problem <RACHAEL Hawk - Last Filed: 03/31/22 12:36> General Chief complaint: Extremity Problem,Nontraumatic Stated complaint: suspected blood clots sent from [facility] Time Seen by Provider: 03/31/22 12:04 Source: patient Mode of arrival: Ambulatory History of Present Illness HPI Narrative: 76-year-old male, former smoker, presents to the emergency department with right lower leg pain and swelling x1 day. 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 Patient reports that he had a DVT in the right lower leg and the pain and swelling is similar. Patient does endorse that he has been more active than usual trying to sell his house and spent a lot of time on a ladder yesterday. Patient denies any trauma to the right leg. Patient has not had any new shortness of breath or difficulty breathing, other than what he still has from his previous PE. SpO2 is 100%. Related Data Home Medications Medication Instructions Recorded Confirmed cholecalciferol (vitamin D3) 50 50 mcg PO DAILY 05/07/20 03/08/22 mcg (2,000 unit) tablet (Vitamin D3) lactobacillus combination no.4 3 3,000 mmu cells PO DAILY 05/07/20 03/08/22 billion cell capsule (Probiotic) losartan 25 mg tablet 25 mg PO BID 05/07/20 03/08/22 omeprazole 20 mg capsule,delayed 20 mg PO BID 05/07/20 03/08/22 release metronidazole 1 % topical gel 1 applic topical .PRN 10/27/21 03/08/22 trazodone 50 mg tablet 50 mg PO DAILY 10/27/21 03/08/22 sildenafil 25 mg tablet 25 mg PO DAILY PRN 03/08/22 03/08/22 Previous Rx's Medication Instructions Recorded acetaminophen 325 mg capsule 650 mg PO QID PRN pain #60 caps 12/07/21 (Tylenol) docusate sodium 100 mg capsule 100 mg PO BID #30 caps 12/07/21 (Colace) ibuprofen 200 mg tablet 400 mg PO Q6H #60 tabs 12/07/21 Allergies Allergy/AdvReac Type Severity Reaction Status Date / Time No Known Drug Allergies Allergy Verified 03/31/22 10:19 Review of Systems <RACHAEL Hawk - Last Filed: 03/31/22 12:36> Review of Systems Narrative: Narrative: GENERAL: Denies chills, fatigue, fever, sweats. See HPI HEENT: Denies sinus pain, ear pain, sore throat, difficulty swallowing, dizziness. RESPIRATORY: Denies dyspnea, cough, wheezing, sputum. CARDIOVASCULAR: Denies chest pain, palpitations, edema. GASTROINTESTINAL: Denies nausea, vomiting, abdominal pain, diarrhea, constipation. : Denies dysuria, frequency, incontinence, hematuria, urinary retention, flank pain. MSK: Denies weakness, joint pain, or bony pain. SKIN: Denies rash, skin lesions, or pruritis. NEUROLOGIC: Denies weakness, dizziness, headache, numbness, confusion. PSYCHIATRIC: No concerning psychosocial issues. Patient History <RACHAEL Hawk - Last Filed: 03/31/22 12:36> Medical History Chicken pox Facet arthropathy, lumbar Foot pain (~2019) Hearing loss Hemorrhoid Hypertension Incontinence of urine Incontinence without sensory awareness Lumbar radiculopathy Rosacea (~2009) Skin cancer (~2019) Sleep apnea (~2004) Wears glasses Surgical History Anesthesia H/O cataract removal with insertion of prosthetic lens History of hernia surgery Hx of eye surgery Family History Father Pneumonia Mother Dementia Alzheimer disease Grandfather Cancer Social History household members: spouse Smoking Status: Former smoker alcohol intake: current Smoking Status: Former smoker alcohol intake frequency: 0-2 drinks per day Substance Use Type: does not use Exam <RACHAEL Hawk - Last Filed: 03/31/22 12:36> Narrative Exam Narrative: Exam Narrative: GENERAL: This is a well-nourished, well-developed patient, in no acute distress HEAD: Atraumatic. Normocephalic. EYES: Pupils equal round and reactive. Extraocular motions intact. No scleral icterus, injection or drainage. ENT: Nose without bleeding, purulent drainage. Throat without erythema, tonsillar hypertrophy or exudate. Airway patent. NECK: Trachea midline. No JVD or lymphadenopathy. Nontender. CARDIOVASCULAR: Regular rate and rhythm without murmurs, peripheral pulses intact, cap refill <2 sec. RESPIRATORY: Breath sounds equal and clear bilaterally. No wheezes, rales, or rhonchi. No cough. No increased respiratory effort. No accessory muscle use. GASTROINTESTINAL: Abdomen soft, non-tender, nondistended without guarding or rebound. No suprapubic pain. MSK: Moves all extremities. Normal range of motion, no clubbing or edema. Neurovascularly intact. Right calf measures 40 cm and right ankle measures 26 cm. Left calf measures 39 cm and ankle 24 cm. NEURO: A&O x 3. SKIN: Warm, dry, no rashes or lesions noted. Initial Vital Signs Initial Vital Signs: Vital Signs Temperature 97.2 F L 03/31/22 10:14 Pulse Rate 56 L 03/31/22 10:14 Respiratory Rate 18 03/31/22 10:14 Blood Pressure 170/74 H 03/31/22 10:14 Pulse Oximetry 100 03/31/22 10:14 Oxygen Delivery Method 03/31/22 10:14 Reviewed <Tony Benítez MD - Last Filed: 03/31/22 19:39> Initial Vital Signs Initial Vital Signs: Vital Signs Temperature 97.2 F L 03/31/22 10:14 Pulse Rate 56 L 03/31/22 10:14 Respiratory Rate 18 03/31/22 10:14 Blood Pressure 170/74 H 03/31/22 10:14 Pulse Oximetry 100 03/31/22 10:14 Oxygen Delivery Method 03/31/22 10:14 Scores <RACHAEL Hawk - Last Filed: 03/31/22 12:36> Serene Criteria for DVT Active Cancer (Treatment within 6 months): No Bedridden recently >3 days or major surgery within 4 weeks: No Calf Swelling >3cm compared to other leg: No Collateral (nonvericose) superficial veins present: No Entire leg swollen: No Localized tenderness along the deep vein system: No Pitting edema, confined to symtomatic leg: No Paralysis, paresis, or recent plaster immobilization of ext: No Previously documented DVT: Yes Alternative dx to DVT as likely or more likely: Yes Héctor' criteria for DVT: -1 Citation:: DVT unlikely but will obtain ultrasound due to previous history. <Tony Benítez MD - Last Filed: 03/31/22 19:39> Wells' Criteria for DVT Wells' criteria for DVT: -1 Course <RACHAEL Hawk - Last Filed: 03/31/22 12:36> Orders Ordered: ED Orders 03/31/22 10:46 US perip venous low extrem rt Stat Vital Signs Vital signs: Vital Signs - 8 hr 03/31/22 10:14 Temperature 97.2 F L Pulse Rate 56 L Respiratory Rate 18 Blood Pressure 170/74 H Pulse Oximetry 100 Oxygen Delivery Method Room Air <Tony Benítez MD - Last Filed: 03/31/22 19:39> Orders Ordered: ED Orders 03/31/22 10:46 US perip venous low extrem rt Stat Vital Signs Vital signs: Vital Signs - 8 hr 03/31/22 10:14 Temperature 97.2 F L Pulse Rate 56 L Respiratory Rate 18 Blood Pressure 170/74 H Pulse Oximetry 100 Oxygen Delivery Method Room Air MDM - Extremity (Nontraumatic) <RACHAEL Hawk - Last Filed: 03/31/22 12:36> Differential Diagnosis Differential diagnosis: Likely lower extremity edema Imaging Data US - DVT: Radiologist's Impression: [place] [address] Ultrasound Report Signed Patient: Suleman Solomon MR#: [id number] : 1945 Acct:[id number] Age/Sex: 76 / M Date of Service: 03/31/22 Loc: ED Accession Number: [id number] ?? Procedure: US periph venous low extrem rt Ordering Provider: Tony Benítez MD PROCEDURE:? US PERIPH VENOUS LOW EXTREM RT ? INDICATIONS:? right calf pain , dvt last year in same leg, same pain ? TECHNIQUE:? Real-time imaging, as well as color and pulse Doppler interrogation, were performed of the lower extremity deep veins from the inguinal ligament to the popliteal fossa.? ? COMPARISON:? [facility], US PERIPH VENOUS LOW EXTREM RT, 05/27/2021, 14:12. ? FINDINGS:? The common femoral, femoral and popliteal veins are normally compressible, and free of intraluminal thrombus.? Color and pulse Doppler demonstrate normal phasic intraluminal flow.? There is normal augmentation response to distal compression maneuver. ? ? IMPRESSION:? Negative for deep venous thrombosis of the right lower extremity. ? ? ? Dictated by: Derek Roger M.D. on 03/31/2022 at 11:10 ? ? Approved by: Derek Roger M.D. on 03/31/2022 at 11:10 ? MDM Narrative Medical decision making narrative: 76-year-old male with previous history of right lower leg DVT, presents to the emergency department with suspected recurrence of right lower leg DVT. Wells criteria for DVT is -1. Ultrasound was negative for a DVT. Patient does not endorse any concerns but just wanted to make sure he did not have a DVT, especially since they [facility] walk-in clinic sent him over. Discussed return precautions and plan of care with the patient, who is agreeable to course of action. Discharge Plan Departure Patient Disposition: Home Clinical Impression: Pain and swelling of lower leg Instructions: DI for Deep Vein Thrombosis Activity Restrictions/Additional Instructions: *You have been diagnosed with right lower extremity swelling. The ultrasound was negative for a deep vein thrombosis. I suspect your swelling and pain was from working on your ladder yesterday and all the extra work you are doing around your house. You should try to elevate the right leg above your heart to the swelling to reduce. If symptoms return, please feel free to come back to the emergency department. Otherwise, please follow-up with your family doctor as needed. *What to do: *Please continue to take your regular medications as directed. [ ] New medication prescriptions sent to your pharmacy: [ ] [ ] New medication written as a paper prescription [ x] No new medications given *Please follow up with your primary care provider in 2-3 days, call for an appointment. Let them know you were seen in the Emergency Department and that we ask that you be seen in follow up. We will electronically transmit a record of today's note if your PCP is in our system *If you do not have a primary care provider please contact the [facility] Resource line at [phone]. They will ask some questions about your medical history and help get you set up with a doctor in the community. ? Return to ER if you should have any new, worsening or concerning symptoms, such as worsening pain, severe headache, confusion, chest pain, difficulty breathing, fever greater than 101 F, shaking chills, persistent vomiting to the point that you cannot drink fluids, or other new or worsening symptoms. Prescriptions: No Action trazodone 50 mg tablet 50 mg PO DAILY metronidazole 1 % gel 1 applic topical .PRN losartan 25 mg tablet 25 mg PO BID omeprazole 20 mg capsule,delayed release(DR/EC) 20 mg PO BID cholecalciferol (vitamin D3) [Vitamin D3] 50 mcg (2,000 unit) Tablet 50 mcg PO DAILY Probiotic 3 billion cell Capsule 3,000 mmu cells PO DAILY ibuprofen 200 mg tablet 400 mg PO Q6H Qty: 60 0RF docusate sodium [Colace] 100 mg capsule 100 mg PO BID Qty: 30 0RF acetaminophen [Tylenol] 325 mg capsule 650 mg PO QID PRN (Reason: pain) Qty: 60 0RF sildenafil 25 mg tablet 25 mg PO DAILY PRN Rx Instructions: administer 30 minutes to 4 hours before activity Referrals: Tony Núñez MD [Primary Care Provider] - Visit Report Forms: Patient Portal/API
== END 2022-03-31 12:42 | disposition home or self-care (01) ==
PROVIDERS: Emergency Provider Registered Nurse; PCP Internal Medicine
DX: M79.604 Pain in right leg (principal); M79.89 Other specified soft tissue disorders
CPT/HCPCS: 93971; 99283

== ENCOUNTER → 2022-06-16 11:28 | Outpatient (CLI) | payer MEDICARE, OTHER, SELFPAY ==
[2022-06-16 12:29] LABS: COVID19 -Nasal RAPID Negative (Negative)
== END ==
PROVIDERS: PCP Internal Medicine; Referring Provider Internal Medicine; Visit Provider Internal Medicine
DX: Z20.822 Contact with and (suspected) exposure to COVID-19 (principal)
CPT/HCPCS: 87635; C9803

== ENCOUNTER → 2022-06-16 11:31 | Outpatient (CLI) | payer MEDICARE, OTHER, SELFPAY ==
--- NOTE | 2022-06-21 09:10 | PM.PFT.1 ---
Pulmonary Function Test Referral & Results Date Patient Seen: 06/16/22 Requesting provider: Tony Núñez Results: The spirometry demonstrates an FVC of 5.08 L which is 109% of predicted. The FEV1 was measured at 3.46 L which is 103% of predicted. The FEV1/FVC ratio was 68 which is 94% of predicted. Following the administration of bronchodilator there was a 43% improvement in FEF 25-75%. Lung volumes show an SVC of 5.29 L which is 108% of predicted. The diffusing capacity was measured at 23.25 which is 63% of predicted. No hemoglobin value was provided, so no correction for potential anemia could be made, if appropriate. The maximum voluntary ventilation was normal Interpretation: This study demonstrates normal spirometry. There is a [id number] reduction diffusing capacity suggesting element of disease at the capillary alveolar level interfering with gas diffusion Compared to PFTs performed in July 2021, current study is essentially unchanged
== END ==
PROVIDERS: PCP Internal Medicine; Referring Provider Internal Medicine; Visit Provider Internal Medicine
DX: J98.8 Other specified respiratory disorders (principal); R06.02 Shortness of breath; Z20.822 Contact with and (suspected) exposure to COVID-19; Z87.891 Personal history of nicotine dependence
CPT/HCPCS: 87635; 94060; 94726; 94729; C9803

== ENCOUNTER → 2022-11-07 09:09 | Outpatient (CLI) | payer MEDICARE, OTHER, SELFPAY | PROVIDERS: PCP Internal Medicine; Visit Provider Urology | DX: N40.1 Benign prostatic hyperplasia with lower urinary tract symptoms (principal); R39.14 Feeling of incomplete bladder emptying; N39.42 Incontinence without sensory awareness; R35.0 Frequency of micturition; M62.89 Other specified disorders of muscle; R82.81 Pyuria; R19.4 Change in bowel habit | CPT/HCPCS: 51798; 81002; 87086; 99214 ==

== ENCOUNTER 2023-04-23 09:23 | Emergency (ER) | payer MEDICARE, OTHER, SELFPAY ==
[2023-04-23] VITALS (10 sets, daily range): BP systolic 148–165; BP diastolic 68–80; PULSE 47–55; RESP 14–26; TEMP 36.7; O2SAT 96–100; BMI 24.4
--- NOTE | 2023-04-23 09:42 | DI.RAD.S_ITS ---
PROCEDURE: XR CHEST 1V INDICATIONS: chest pain TECHNIQUE: One view of the chest was acquired. COMPARISON: [facility], CR, XR CHEST 1V, 09/20/2020, 12:33. FINDINGS: Surgical changes and devices: None. Lungs and pleura: Lungs are clear. No pleural effusions or pneumothorax. Mediastinum: Mediastinal contours appear normal. Heart size is normal. Bones and chest wall: No suspicious bony lesions. Overlying soft tissues appear unremarkable. IMPRESSION: No acute cardiopulmonary abnormalities or focal airspace disease. Dictated by: Derek Roger M.D. on 04/23/2023 at 10:27 Approved by: Derek Roger M.D. on 04/23/2023 at 10:30
--- NOTE | 2023-04-23 09:43 | DI.US.S_ITS ---
PROCEDURE: US PERIPH VENOUS LOW EXTREM BI INDICATIONS: Lower extremity swelling. Hx of PE and DVT TECHNIQUE: Real-time imaging, as well as color and pulse Doppler interrogation, were performed of the deep veins of both legs from the inguinal ligament to the popliteal fossa, with documentation of the visualized calf veins. COMPARISON: None. FINDINGS: Right: The common femoral, femoral, popliteal, and the visualized calf veins are normally compressible, and free of intraluminal thrombus. Color and pulse Doppler demonstrate normal phasic intravascular flow. There is normal augmentation response to distal compression maneuver. Left: The common femoral, femoral, popliteal, and the visualized calf veins are normally compressible, and free of intraluminal thrombus. Color and pulse Doppler demonstrate normal phasic intravascular flow. There is normal augmentation response to distal compression maneuver. IMPRESSION: No findings of deep venous thrombosis in either lower extremity. Dictated by: Derek Roger M.D. on 04/23/2023 at 11:42 Approved by: Derek Roger M.D. on 04/23/2023 at 11:42
[2023-04-23 10:26] LABS: Add Manual Diff / Slide Review NO; Basophils Absolute Auto 0 /uL (0-100); Basophils Percent Auto 0.3 % (0-2); Eosinophils Absolute Auto 100 /uL (0-450); Eosinophils Percent Auto 1.6 % (2-4); Hematocrit 39.7 % (41-53); Hemoglobin 13.8 g/dL (13.5-17.5); Lymphocytes Absolute Auto 1300 /uL (1100-4500); Lymphocytes Percent Auto 20.6 % (25-40); Mean Corpuscular HGB Conc 34.8 % (30-36); Mean Corpuscular Volume 94.8 fL (80-100); Monocytes Absolute Auto 400 /uL (0-900); Monocytes Percent Auto 6.7 % (3-14); Neutrophils Absolute Auto 4500 /uL (1500-7000); Neutrophils Percent Auto 70.8 % (50-75); Platelet Count 158 X10^3/uL (150-400); Red Blood Cell Count 4.19 X10^6/uL (4.5-5.9); Red Cell Distribution Width 13.1 % (11.6-14.8); White Blood Cell Count 6.4 X10^3/uL (4.5-11.0)
[2023-04-23 10:32] LABS: INR 1.1 (0.9-1.3); Prothrombin Time 12.1 SECONDS (10.1-12.7)
[2023-04-23 10:35] LABS: PTT Partial Thromboplastin Tim 31 SECONDS (26-36)
[2023-04-23 10:40] LABS: Alanine Aminotransferase 19 IU/L (<50); Albumin 3.4 g/dL (3.5-5.0); Albumin Globulin Ratio 1.3 (1.0-2.8); Alkaline Phosphatase 51 U/L (38-126); Aspartate Aminotransferase 23 IU/L (17-59); BUN Creatinine Ratio 21.5 (6-22); Bilirubin Total 0.8 mg/dL (0.2-1.3); Blood Urea Nitrogen 20 mg/dL (9-20); Calcium 8.4 mg/dL (8.4-10.2); Carbon Dioxide 29 mmol/L (22-32); Chloride 105 mmol/L (98-107); Creatine Kinase 43 U/L (55-170); Estimated Glomerular Filt Rate > 60 mL/min (>60); Globulin 2.6 g/dL (1.7-4.1); Glucose 87 mg/dL (80-110); HEMOLYSIS 20 (0-50); Lipase 74 U/L (23-300); Magnesium 1.9 mg/dL (1.6-2.3); Potassium 3.5 mmol/L (3.4-5.1); Sodium 136 mmol/L (137-145)
[2023-04-23 10:50] LABS: Troponin I < 0.012 ng/mL (0.01-0.034)
[2023-04-23 11:38] LABS: NT-proBNP (BNP-Adult 18+) 293 pg/mL (<450)
--- NOTE | 2023-04-24 18:35 | ED.EXTPRO ---
HPI - Extremity Problem <Laurie Spence PA-C - Last Filed: 04/24/23 19:12> General Chief complaint: Extremity Problem,Nontraumatic Stated complaint: R/ leg swelling Time Seen by Provider: 04/23/23 11:17 Source: patient and family Mode of arrival: Ambulatory History of Present Illness HPI Narrative: 77-year-old male with past medical history hypertension, sleep apnea, BPH presents to the ED with 2 days of lower leg swelling, right leg greater than left. Patient states that he has a history of DVTs, PE, which is mainly the reason he came to the ED today for evaluation. Patient is not on blood thinners. Patient denies leg pain. Patient is able to bear weight and walk well. Patient denies numbness, tingling, weakness. Patient denies chest pain, shortness of breath. Related Data Home Medications Medication Instructions Recorded Confirmed cholecalciferol (vitamin D3) 50 50 mcg PO DAILY 05/07/20 01/09/23 mcg (2,000 unit) tablet (Vitamin D3) lactobacillus combination no.4 3 3,000 mmu cells PO DAILY 05/07/20 01/09/23 billion cell capsule (Probiotic) trazodone 50 mg tablet 50 mg PO DAILY 10/27/21 01/09/23 sildenafil 25 mg tablet 25 mg PO DAILY PRN 03/08/22 01/09/23 losartan 25 mg tablet 25 mg PO DAILY 07/13/22 01/09/23 tamsulosin 0.4 mg capsule 0.4 mg PO BEDTIME 11/07/22 01/09/23 Allergies Allergy/AdvReac Type Severity Reaction Status Date / Time No Known Drug Allergies Allergy Verified 01/09/23 15:11 Review of Systems <Laurie Spence PA-C - Last Filed: 04/24/23 19:12> Review of Systems ROS Unobtainable: All systems reviewed & are unremarkable except as noted in HPI and below Constitutional Constitutional: Denies chills, Denies fatigue, Denies fever(s), Denies frequent falls, Denies lethargy and Denies weakness Eyes Eyes: Denies change in vision, Denies eye discharge, Denies irritation and Denies loss of vision ENT Ears, Nose, Mouth, and Throat: Denies change in voice, Denies dizziness, Denies neck pain, Denies sore throat and Denies throat swelling Cardiovascular Cardiovascular: Denies chest pain, Denies irregular heart rhythm, Reports leg edema, Denies lightheadedness, Denies palpitations, Denies dyspnea, Denies dyspnea on exertion and Denies orthopnea Respiratory Respiratory: Denies cough, Denies dyspnea, Denies dyspnea on exertion and Denies wheezing Gastrointestinal Gastrointestinal: Denies abdominal pain, Denies change in bowel habits, Denies diarrhea, Denies nausea and Denies vomiting Genitourinary Genitourinary: Denies hematuria, Denies flank pain, Denies urinary incontinence and Denies urinary urgency Musculoskeletal Musculoskeletal: Denies back pain, Denies muscle weakness, Denies neck pain, Denies numbness and Denies tingling Integumentary/Breasts Skin/Breast: Denies pruritus, Denies erythema, Denies rash and Denies wounds Neurologic Neurologic: Denies behavioral changes, Denies confusion, Denies dizziness, Denies frequent falls, Denies loss of vision, Denies numbness, Denies tingling and Denies weakness Psychiatric Psychiatric: Denies anxiety, Denies behavioral changes, Denies confusion, Denies depression, Denies homicidal ideation and Denies suicidal ideation Endocrine Endocrine: Denies fatigue, Denies flushing and Denies palpitations Hematologic/Lymphatic Hematologic/Lymphatic: Denies easy bruising Allergic/Immunologic Allergic/Immunologic: Denies urticaria, Denies throat swelling and Denies wheezing Patient History <Laurie Spence PA-C - Last Filed: 04/24/23 19:12> Medical History Chicken pox Facet arthropathy, lumbar Foot pain (~2019) Hearing loss Hemorrhoid Hypertension Incontinence of urine Incontinence without sensory awareness Lumbar radiculopathy Pelvic floor weakness, male Rosacea (~2009) Skin cancer (~2019) Sleep apnea (~2004) Wears glasses Surgical History Anesthesia H/O cataract removal with insertion of prosthetic lens History of hernia surgery Hx of eye surgery Family History Father Pneumonia Mother Dementia Alzheimer disease Grandfather Cancer Social History household members: spouse Smoking Status: Former smoker alcohol intake: current Smoking Status: Former smoker alcohol intake frequency: 0-2 drinks per day Alcohol type: wine Substance Use Type: does not use Exam <Laurie Spence PA-C - Last Filed: 04/24/23 19:12> Narrative Exam Narrative: Const General:?cooperative, healthy appearing and comfortable [facility] Head:?normal to inspection Ears:?hearing grossly normal bilaterally Nose:?external nose normal Face and sinus:?normal facial exam and sinuses nontender Mouth:?oral mucosae normal Throat:?posterior oropharynx normal Eyes General:?appearance normal, both eyes and all related structures Neck Neck:?normal visual inspection and no lymphadenopathy noted Resp Effort & Inspection:?normal respiratory effort Auscultation:?clear to auscultation bilaterally Cardio Rate:?regular rate Rhythm:?regular rhythm Right leg swelling greater than left; no signs of cellulitis; nontender to palpation; strength and sensation is intact; full range of motion; patient is neurovascularly intact Neuro General:?patient alert, patient awake and patient oriented x3 Initial Vital Signs Initial Vital Signs: Vital Signs Temperature 98.1 F 04/23/23 09:30 Pulse Rate 54 L 04/23/23 09:30 Respiratory Rate 14 04/23/23 09:30 Blood Pressure 151/70 H 04/23/23 09:30 Pulse Oximetry 100 04/23/23 09:30 Oxygen Delivery Method Room Air 04/23/23 09:30 <DO Demian Vogel Last Filed: 04/24/23 19:25> Initial Vital Signs Initial Vital Signs: Vital Signs Temperature 98.1 F 04/23/23 09:30 Pulse Rate 54 L 04/23/23 09:30 Respiratory Rate 14 04/23/23 09:30 Blood Pressure 151/70 H 04/23/23 09:30 Pulse Oximetry 100 04/23/23 09:30 Oxygen Delivery Method Room Air 04/23/23 09:30 Course <Laurie Spence PA-C - Last Filed: 04/24/23 19:12> Orders Ordered: Discontinued Medications Aspirin (Aspirin 81 Mg Chew Tab) 324 mg PO NOW ONE Stop: 04/23/23 09:42 Last Admin: 04/23/23 10:44 Dose: Not Given Documented By: ST <DO Demian Vogel Last Filed: 04/24/23 19:25> Orders Ordered: Discontinued Medications Aspirin (Aspirin 81 Mg Chew Tab) 324 mg PO NOW ONE Stop: 04/23/23 09:42 Last Admin: 04/23/23 10:44 Dose: Not Given Documented By: ST VERONICA - Extremity (Nontraumatic) <Laurie Spence PA-C - Last Filed: 04/24/23 19:12> Lab Data 04/23/23 10:03 04/23/23 10:03 Labs: Lab Results 04/23/23 04/23/23 04/23/23 Range/Units 10:03 10:03 10:03 WBC 6.4 (4.5-11.0) X10^3/uL RBC 4.19 L (4.5-5.9) X10^6/uL Hgb 13.8 (13.5-17.5) g/dL Hct 39.7 L (41-53) % MCV 94.8 (80-100) fL MCH 33.0 (26-34) PG MCHC 34.8 (30-36) % RDW 13.1 (11.6-14.8) % Plt Count 158 (150-400) X10^3/uL Neut % (Auto) 70.8 (50-75) % Lymph % (Auto) 20.6 L (25-40) % [place] % (Auto) 6.7 (3-14) % Eos % (Auto) 1.6 L (2-4) % Baso % (Auto) 0.3 (0-2) % Neut # (Auto) 4500 (9072-7524) /uL Lymph # (Auto) 1300 (5466-8243) /uL [place] # (Auto) 400 (0-900) /uL Eos # (Auto) 100 (0-450) /uL Baso # (Auto) 0 (0-100) /uL PT 12.1 (10.1-12.7) SECONDS INR 1.1 (0.9-1.3) APTT 31 (26-36) SECONDS Sodium 136 L (137-145) mmol/L Potassium 3.5 (3.4-5.1) mmol/L Chloride 105 (98-107) mmol/L Carbon Dioxide 29 (22-32) mmol/L BUN 20 (9-20) mg/dL Creatinine 0.93 (0.66-1.25) mg/dL Estimated GFR > 60 (>60) mL/min BUN/Creatinine Ratio 21.5 (6-22) Glucose 87 (80-110) mg/dL Calcium 8.4 (8.4-10.2) mg/dL Magnesium 1.9 (1.6-2.3) mg/dL Total Bilirubin 0.8 (0.2-1.3) mg/dL AST 23 (17-59) IU/L ALT 19 (<50) IU/L Alkaline Phosphatase 51 (38-126) U/L Total Creatine Kinase 43 L (55-170) U/L Troponin I < 0.012 (0.01-0.034) ng/mL NT-Pro-B Natriuret Pep (<450) pg/mL Total Protein 6.0 L (6.3-8.2) g/dL Albumin 3.4 L (3.5-5.0) g/dL Globulin 2.6 (1.7-4.1) g/dL Albumin/Globulin Ratio 1.3 (1.0-2.8) Lipase 74 (23-300) U/L 04/23/23 Range/Units 10:03 WBC (4.5-11.0) X10^3/uL RBC (4.5-5.9) X10^6/uL Hgb (13.5-17.5) g/dL Hct (41-53) % MCV (80-100) fL MCH (26-34) PG MCHC (30-36) % RDW (11.6-14.8) % Plt Count (150-400) X10^3/uL Neut % (Auto) (50-75) % Lymph % (Auto) (25-40) % [place] % (Auto) (3-14) % Eos % (Auto) (2-4) % Baso % (Auto) (0-2) % Neut # (Auto) (1659-3012) /uL Lymph # (Auto) (8689-9121) /uL [place] # (Auto) (0-900) /uL Eos # (Auto) (0-450) /uL Baso # (Auto) (0-100) /uL PT (10.1-12.7) SECONDS INR (0.9-1.3) APTT (26-36) SECONDS Sodium (137-145) mmol/L Potassium (3.4-5.1) mmol/L Chloride (98-107) mmol/L Carbon Dioxide (22-32) mmol/L BUN (9-20) mg/dL Creatinine (0.66-1.25) mg/dL Estimated GFR (>60) mL/min BUN/Creatinine Ratio (6-22) Glucose (80-110) mg/dL Calcium (8.4-10.2) mg/dL Magnesium (1.6-2.3) mg/dL Total Bilirubin (0.2-1.3) mg/dL AST (17-59) IU/L ALT (<50) IU/L Alkaline Phosphatase (38-126) U/L Total Creatine Kinase (55-170) U/L Troponin I (0.01-0.034) ng/mL NT-Pro-B Natriuret Pep 293 (<450) pg/mL Total Protein (6.3-8.2) g/dL Albumin (3.5-5.0) g/dL Globulin (1.7-4.1) g/dL Albumin/Globulin Ratio (1.0-2.8) Lipase (23-300) U/L MDM Narrative Medical decision making narrative: 77-year-old male with past medical history hypertension, sleep apnea, BPH presents to the ED with 2 days of lower leg swelling, right leg greater than left. Concern for cardiac etiology, CHF, DVT versus other. Will obtain EKG, chest x-ray, labs, troponin, BNP, ultrasound DVT. Workup largely unremarkable. Ultrasound without findings of DVT. Labs, troponin, BNP within normal limits. Patient's leg swelling likely due to increased activity doing yd work and staying on his feet. 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 ED return precautions were discussed with patient. Patient verbalized understanding. Medical records reviewed: Yes <Irena Dinh DO - Last Filed: 04/24/23 19:25> Lab Data Labs: Lab Results 04/23/23 04/23/23 04/23/23 Range/Units 10:03 10:03 10:03 WBC 6.4 (4.5-11.0) X10^3/uL RBC 4.19 L (4.5-5.9) X10^6/uL Hgb 13.8 (13.5-17.5) g/dL Hct 39.7 L (41-53) % MCV 94.8 (80-100) fL MCH 33.0 (26-34) PG MCHC 34.8 (30-36) % RDW 13.1 (11.6-14.8) % Plt Count 158 (150-400) X10^3/uL Neut % (Auto) 70.8 (50-75) % Lymph % (Auto) 20.6 L (25-40) % [place] % (Auto) 6.7 (3-14) % Eos % (Auto) 1.6 L (2-4) % Baso % (Auto) 0.3 (0-2) % Neut # (Auto) 4500 (1978-1307) /uL Lymph # (Auto) 1300 (6961-2704) /uL [place] # (Auto) 400 (0-900) /uL Eos # (Auto) 100 (0-450) /uL Baso # (Auto) 0 (0-100) /uL PT 12.1 (10.1-12.7) SECONDS INR 1.1 (0.9-1.3) APTT 31 (26-36) SECONDS Sodium 136 L (137-145) mmol/L Potassium 3.5 (3.4-5.1) mmol/L Chloride 105 (98-107) mmol/L Carbon Dioxide 29 (22-32) mmol/L BUN 20 (9-20) mg/dL Creatinine 0.93 (0.66-1.25) mg/dL Estimated GFR > 60 (>60) mL/min BUN/Creatinine Ratio 21.5 (6-22) Glucose 87 (80-110) mg/dL Calcium 8.4 (8.4-10.2) mg/dL Magnesium 1.9 (1.6-2.3) mg/dL Total Bilirubin 0.8 (0.2-1.3) mg/dL AST 23 (17-59) IU/L ALT 19 (<50) IU/L Alkaline Phosphatase 51 (38-126) U/L Total Creatine Kinase 43 L (55-170) U/L Troponin I < 0.012 (0.01-0.034) ng/mL NT-Pro-B Natriuret Pep (<450) pg/mL Total Protein 6.0 L (6.3-8.2) g/dL Albumin 3.4 L (3.5-5.0) g/dL Globulin 2.6 (1.7-4.1) g/dL Albumin/Globulin Ratio 1.3 (1.0-2.8) Lipase 74 (23-300) U/L 04/23/23 Range/Units 10:03 WBC (4.5-11.0) X10^3/uL RBC (4.5-5.9) X10^6/uL Hgb (13.5-17.5) g/dL Hct (41-53) % MCV (80-100) fL MCH (26-34) PG MCHC (30-36) % RDW (11.6-14.8) % Plt Count (150-400) X10^3/uL Neut % (Auto) (50-75) % Lymph % (Auto) (25-40) % [place] % (Auto) (3-14) % Eos % (Auto) (2-4) % Baso % (Auto) (0-2) % Neut # (Auto) (8300-0101) /uL Lymph # (Auto) (2718-6853) /uL [place] # (Auto) (0-900) /uL Eos # (Auto) (0-450) /uL Baso # (Auto) (0-100) /uL PT (10.1-12.7) SECONDS INR (0.9-1.3) APTT (26-36) SECONDS Sodium (137-145) mmol/L Potassium (3.4-5.1) mmol/L Chloride (98-107) mmol/L Carbon Dioxide (22-32) mmol/L BUN (9-20) mg/dL Creatinine (0.66-1.25) mg/dL Estimated GFR (>60) mL/min BUN/Creatinine Ratio (6-22) Glucose (80-110) mg/dL Calcium (8.4-10.2) mg/dL Magnesium (1.6-2.3) mg/dL Total Bilirubin (0.2-1.3) mg/dL AST (17-59) IU/L ALT (<50) IU/L Alkaline Phosphatase (38-126) U/L Total Creatine Kinase (55-170) U/L Troponin I (0.01-0.034) ng/mL NT-Pro-B Natriuret Pep 293 (<450) pg/mL Total Protein (6.3-8.2) g/dL Albumin (3.5-5.0) g/dL Globulin (1.7-4.1) g/dL Albumin/Globulin Ratio (1.0-2.8) Lipase (23-300) U/L Discharge Plan Departure Patient Disposition: Home Clinical Impression: Leg swelling Instructions: DI for Leg Pain Activity Restrictions/Additional Instructions: You were evaluated in the ED today for right leg swelling. The ultrasound did not show any blood clots. Your chest x-ray, EKG, labs were normal. It appears that your leg swelling is likely due to your increased activity doing yd work and being on your feet. Please try to rest with your leg raised above heart level, increase hydration. 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 Return to the ED if you experience worsening symptoms, chest pain, shortness of breath. Prescriptions: No Action trazodone 50 mg tablet 50 mg PO DAILY cholecalciferol (vitamin D3) [Vitamin D3] 50 mcg (2,000 unit) Tablet 50 mcg PO DAILY Probiotic 3 billion cell Capsule 3,000 mmu cells PO DAILY losartan 25 mg tablet 25 mg PO DAILY sildenafil 25 mg tablet 25 mg PO DAILY PRN Rx Instructions: administer 30 minutes to 4 hours before activity tamsulosin 0.4 mg capsule 0.4 mg PO BEDTIME Referrals: Bernice Horton PA-C [Primary Care Provider] - Stand Alone Forms: Patient Portal/API <Irena Dinh DO - Last Filed: 04/24/23 19:25> Cosign ED Attending Angieature Attestation: I was immediately available in the department for consultation. Documentation has been reviewed.
== END 2023-04-23 12:16 | disposition home or self-care (01) ==
PROVIDERS: Emergency Medicine; Emergency Provider Student in an Organized Health Care Education/Training Program; PCP Physician Assistant
DX: M79.89 Other specified soft tissue disorders (principal); R00.1 Bradycardia, unspecified; I10 Essential (primary) hypertension
CPT/HCPCS: 36415; 71045; 80053; 82550; 83690; 83735; 83880; 84484; 85025; 85610; 85730; 93005; 93010; 93970; 99284

== ENCOUNTER → 2023-06-12 09:06 | Outpatient (CLI) | payer MEDICARE, OTHER, SELFPAY ==
--- NOTE | 2023-06-12 | DI.ECHO.S_ITS ---
[facility]---------+ [facility] +---------+ : : [address] : : : : [id number] : : : : Phone: [phone]+ Echocardiogram Report + + :Name: GREGORIA CARABALLO Study Date: 06/12/2023 Height: 71.5 in: :[facility] ReadingLocation: Weight: 172 lb : : Gender: Male BSA: 2.0 m2 : :: 1945 Age: 77 yrs BP: 137/73 mmHg: :Reason For Study: FATIGUE : :Ordering Physician: FOREST, : :KIRK Performed By: Shabnam Larose : :Referring: KIRK GARG : + + Interpretation Summary Sinus bradycardia. Heart rate is 53-62 bpm. Normal LV size and wall thickness; normal wall motion and LV systolic function. EF is 55-60%. Normal chamber sizes. Aortic valve leaflets are moderately thickened and calcified especially the non-coronary leaflet. There is mild-moderate associated aortic regurgitation but no significant stenosis. Otherwise no significant valvular abnormalities. Borderline dilated ascending aorta. Compared to prior study bradycardia is more pronounced. Heart rate is down from 59-69 bpm during prior exam 06/16/2021 to 53-62 bpm currently. Aortic sclerosis has progressed. Procedure: A two-dimensional transthoracic echocardiogram with color flow and Doppler was performed. The study quality was technically adequate. Comparison is made with the echocardiogram of 06/16/2021. The patient was in sinus bradycardia with heart rates between 53-62 bpm during the exam. Left Ventricle: The left ventricle is normal in size and wall thickness. The ejection fraction is estimated to be 55-60%. Right Ventricle: The right ventricle is normal in size and function. Atria: The left atrial size is normal. This is unchanged compared to the previous study. There is no Doppler evidence for an interatrial shunt. Mitral Valve: The mitral valve is normal in structure and function. There is trace mitral regurgitation. Aortic Valve: The aortic valve is trileaflet. The aortic valve is moderately calcified. There is mild aortic valve sclerosis. The peak aortic velocity is 1.8 m/sec. The aortic valve mean gradient is 7 mmHg. The calculated aortic valve area is 2.8 cm2. There is mild to moderate aortic regurgitation. Tricuspid Valve: The tricuspid valve is normal in structure and function. There is mild tricuspid regurgitation. Pulmonic Valve: The pulmonic valve leaflets are thin and pliable; valve motion is normal. There is no pulmonic valvular regurgitation. Great Vessels: The aortic root is normal size. The ascending aorta is at the upper limits of normal in size. The IVC is of normal diameter and collapses greater than 50% with a sniff. This suggests a low right atrial pressure of 3 mm Hg. Pericardium/ Pleura There is no pericardial effusion. There is no pleural effusion. MMode/2D Measurements & Calculations LVIDd: 5.2 cm LVOT diam: 2.4 cm LVIDs: 3.4 cm Ao root diam: 3.7 cm FS: 35.5 % asc Aorta Diam: 4.0 cm EPSS: 1.6 cm Ao Arch Diam (Prox Trans): 2.9 cm IVSd: 0.94 cm LVPWd: 0.77 cm LV west. diameter/BSA (cm/m^2): 2.6 LV sys. diameter/BSA (cm/m^2): 1.7 LA A2 area: 20.0 cm2 RA long axis: 5.5 cm LA A4 area: 21.1 cm2 RA area: 20.5 cm2 LA length (vol): 5.5 cm RA vol: 64.4 ml LA vol: 64.9 ml RA : 32.4 ml/m2 LA vol index: 32.6 ml/m2 IVC diam: 1.6 cm RVD1 (basal): 3.3 cm RVD2 (mid): 2.6 cm TAPSE: 2.1 cm Doppler Measurements & Calculations Ao V2 max: 176.5 cm/sec LVOT Max Jorge: 110.6 cm/sec Ao V2 mean: 121.6 cm/sec LV V1 max P.9 mmHg Ao max P.5 mmHg LV V1 VTI: 23.7 cm Ao mean P.7 mmHg DWIGHT(I,D): 2.8 cm2 Ao V2 VTI: 37.6 cm DWIGHT(V,D): 2.8 cm2 sev ratio: 0.63 DWIGHT indexed to BSA (cm^2/m^2): 1.4 AI P1/2t: 658.6 msec AI dec slope: 207.2 cm/sec2 MV E max jorge: 37.5 cm/sec PA V2 max: 90.3 cm/sec MV A max jorge: 54.3 cm/sec PA V2 mean: 66.6 cm/sec MV E/A: 0.69 PA mean P.9 mmHg Med Peak E' Jorge: 5.4 cm/sec PA pr(Accel): 36.2 mmHg E/E' med: 6.9 Lat Peak E' Jorge: 6.8 cm/sec E/E' lat: 5.5 E/e' average: 6.2 MV dec time: 0.29 sec SV(LVOT): 104.8 ml Electronically signed by: Christine Salgado M.D. on Reading Physician:06/13/2023 04:59 AM
== END ==
PROVIDERS: PCP Physician Assistant; Referring Provider Physician Assistant; Visit Provider Physician Assistant
DX: I08.2 Rheumatic disorders of both aortic and tricuspid valves (principal); R53.83 Other fatigue; R06.02 Shortness of breath
CPT/HCPCS: 93306

== ENCOUNTER → 2023-07-19 07:33 | Outpatient (CLI) | payer MEDICARE, OTHER, SELFPAY ==
--- NOTE | 2023-07-20 03:21 | DI.NM.S_ITS ---
DATE OF SERVICE: 07/19/2023 PROCEDURE: Exercise treadmill stress test without imaging. ORDERING PROVIDER: Cliff Schaeffer MD INDICATIONS: The patient is a 77-year-old hypertensive male, apparently with chest discomfort. FINDINGS: 1. The patient was able to exercise for 8 minutes 34 seconds, suggesting good exercise capacity with an YAMEL of -20%, achieving 10.1 METs. 2. He had a normal heart rate and blood pressure response to exercise, achieving a maximum heart rate of 132 BPM (93% of his predicted maximum). 3. He had no chest discomfort or other anginal symptoms. 4. His resting ECG shows sinus rhythm with normal ST segments. There are no significant ST-segment shifts or arrhythmias with stress. IMPRESSION: 1. Normal exercise treadmill stress test for ischemia. 2. Good exercise capacity without angina or arrhythmias. Suleman Solomon - BAM/roosevelt/kt doc#: [id number]/job#: [id number] dd: 07/19/2023 16:38:00 dt: 07/20/2023 03:14:00 DICTATING MD/COPIES TO: Tony Clinton MD; Cliff Schaeffer MD COPIES MNE: SUMA;
== END ==
PROVIDERS: PCP Physician Assistant; Referring Provider Internal Medicine Cardiovascular Disease; Visit Provider Internal Medicine Cardiovascular Disease
DX: R06.02 Shortness of breath (principal); R07.2 Precordial pain
CPT/HCPCS: 93017

== ENCOUNTER 2023-09-11 11:01 | Emergency (ER) | payer MEDICARE, OTHER, SELFPAY ==
[2023-09-11 11:32] VITALS: BP 185/93; PULSE 74; RESP 18; TEMP 36.6; O2SAT 97; BMI 25.0
--- NOTE | 2023-09-11 11:38 | DI.RAD.S_ITS ---
PROCEDURE: XR CHEST 1V INDICATIONS: chest pain TECHNIQUE: One view of the chest was acquired. COMPARISON: [facility], CR, XR CHEST 1V, 04/23/2023, 10:02. FINDINGS: Surgical changes and devices: None. Lungs and pleura: Lungs are clear. No pleural effusions or pneumothorax. Mediastinum: Mediastinal contours appear normal. Heart size is normal. Small hiatal hernia. Bones and chest wall: No suspicious bony lesions. Overlying soft tissues appear unremarkable. IMPRESSION: No acute cardiopulmonary abnormality is seen. Small hiatal hernia. Dictated by: Lake Butts M.D. on 09/11/2023 at 13:55 Approved by: Lake Butts M.D. on 09/11/2023 at 13:58
--- NOTE | 2023-09-11 12:05 | DI.US.S_ITS ---
PROCEDURE: US PERIP VENOUS LOW EXTREM RT INDICATIONS: RIGHT LOWER EXTREMITY EDEMA TECHNIQUE: Real-time imaging, as well as color and pulse Doppler interrogation, were performed of the lower extremity deep veins from the inguinal ligament to the popliteal fossa, with documentation of the visualized calf veins. COMPARISON: [facility], , [facility] VENOUS LOW EXTREM RT, 03/31/2022, 10:35. FINDINGS: The common femoral, femoral, popliteal, and the visualized calf veins are normally compressible, and free of intraluminal thrombus. Color and pulse Doppler demonstrate normal phasic intraluminal flow. There is normal augmentation response to distal compression maneuver. Superficial venous thrombosis can be seen, with occlusive thrombus within the greater saphenous vein, which begins just below the level of the knee to the distal calf. IMPRESSION: No findings of lower extremity deep venous thrombosis. Superficial venous thrombosis can be seen, with occlusive thrombus within the greater saphenous vein from the level just below the knee to the distal calf. Dictated by: Dc Evans M.D. on 09/11/2023 at 11:56 Approved by: Dc Evans M.D. on 09/11/2023 at 11:57
[2023-09-11 12:09] LABS: INR 1.1 (0.9-1.3); Prothrombin Time 12.5 SECONDS (9.4-12.5)
[2023-09-11 12:10] LABS: Add Manual Diff / Slide Review NO; Basophils Absolute Auto 0 /uL (0-100); Basophils Percent Auto 0.4 % (0-2); Eosinophils Absolute Auto 100 /uL (0-450); Eosinophils Percent Auto 1.7 % (2-4); Hematocrit 40.2 % (41-53); Lymphocytes Absolute Auto 1400 /uL (1100-4500); Lymphocytes Percent Auto 18.8 % (25-40); Mean Corpuscular HGB Conc 34.8 % (30-36); Mean Corpuscular Hemoglobin 32.6 PG (26-34); Mean Corpuscular Volume 93.9 fL (80-100); Monocytes Absolute Auto 600 /uL (0-900); Monocytes Percent Auto 8.2 % (3-14); Neutrophils Absolute Auto 5400 /uL (1500-7000); Neutrophils Percent Auto 70.9 % (50-75); Platelet Count 159 X10^3/uL (150-400); Red Blood Cell Count 4.28 X10^6/uL (4.5-5.9); Red Cell Distribution Width 12.9 % (11.6-14.8); White Blood Cell Count 7.5 X10^3/uL (4.5-11.0)
[2023-09-11 12:11] LABS: PTT Partial Thromboplastin Tim 31 SECONDS (25.1-36.5)
[2023-09-11 12:16] LABS: Alanine Aminotransferase 14 IU/L (<50); Albumin 3.5 g/dL (3.5-5.0); Albumin Globulin Ratio 1.2 (1.0-2.8); Alkaline Phosphatase 64 U/L (38-126); Aspartate Aminotransferase 21 IU/L (17-59); Bilirubin Total 1.3 mg/dL (0.2-1.3); Blood Urea Nitrogen 21 mg/dL (9-20); Calcium 8.8 mg/dL (8.4-10.2); Carbon Dioxide 27 mmol/L (22-32); Chloride 104 mmol/L (98-107); Creatine Kinase 39 U/L (55-170); Estimated Glomerular Filt Rate > 60 mL/min (>60); Globulin 2.9 g/dL (1.7-4.1); Glucose 78 mg/dL (80-110); HEMOLYSIS < 15 (0-50); Lipase 52 U/L (23-300); Magnesium 1.7 mg/dL (1.6-2.3); Potassium 3.7 mmol/L (3.4-5.1); Sodium 137 mmol/L (137-145); Total Protein 6.4 g/dL (6.3-8.2)
[2023-09-11 12:28] LABS: Troponin I < 0.012 ng/mL (0.01-0.034)
--- NOTE | 2023-09-11 12:45 | PC.NURSE ---
Pt came to the ED today because he has been havaing pain and swelling in his right lower extremity. Pt states that he was seen in the ED at [facility] on 09/07/2023 and was discharged. Pt has been experiencing increasing pain and swelling since that time. Right lower ankle 2+ pitting edema, red and warm to touch. C/o 5/10 pain that he describes as a consistent throbbing. Pt reports having previous DVTs and this feels very similar. pt denies any SOB, cp, n/v. Pt a&ox4.
--- NOTE | 2023-09-11 13:44 | ED.EXTPRO ---
HPI - Extremity Problem General Chief complaint: Extremity Problem,Nontraumatic Stated complaint: swollen leg Time Seen by Provider: 09/11/23 13:39 Source: patient Mode of arrival: Ambulatory History of Present Illness HPI Narrative: Patient is a 78-year-old male history of DVT, hypertension, presenting today with ongoing right leg pain. He says that he has had some right leg pain and swelling ongoing for the last 5 days. He previously had a DVT in that leg after traveling you years ago. He was seen evaluated at [facility] 4 days ago and told to take aspirin. He reports he is having increasing pain and swelling he says the swelling is actually worse in the morning. He denies any chest pain palpitations or shortness of breath. No fever or chills. He walks 5 miles daily and is very active. He has not had any recent travel. Records received and reviewed from formerly [facility] does show superficial thrombosis of right calf Related Data Home Medications Medication Instructions Recorded Confirmed cholecalciferol (vitamin D3) 50 50 mcg PO DAILY 05/07/20 01/09/23 mcg (2,000 unit) tablet (Vitamin D3) lactobacillus combination no.4 3 3,000 mmu cells PO DAILY 05/07/20 01/09/23 billion cell capsule (Probiotic) trazodone 50 mg tablet 50 mg PO DAILY 10/27/21 01/09/23 sildenafil 25 mg tablet 25 mg PO DAILY PRN 03/08/22 01/09/23 losartan 25 mg tablet 25 mg PO DAILY 07/13/22 01/09/23 tamsulosin 0.4 mg capsule 0.4 mg PO BEDTIME 11/07/22 01/09/23 Previous Rx's Medication Instructions Recorded apixaban 5 mg (74 tabs) tablets in See Rx Instructions PO .COMPLEX 09/11/23 a dose pack (Eliquis DVT-PE Treat #74 ea 30D Start) Allergies Allergy/AdvReac Type Severity Reaction Status Date / Time No Known Drug Allergies Allergy Verified 01/09/23 15:11 Patient History Medical History Chicken pox Facet arthropathy, lumbar Foot pain (~2019) Hearing loss Hemorrhoid Hypertension Incontinence of urine Incontinence without sensory awareness Lumbar radiculopathy Pelvic floor weakness, male Rosacea (~2009) Skin cancer (~2020) Sleep apnea (~2005) Wears glasses Surgical History Anesthesia H/O cataract removal with insertion of prosthetic lens History of hernia surgery Hx of eye surgery Family History Father Pneumonia Mother Dementia Alzheimer disease Grandfather Cancer Social History household members: spouse Smoking Status: Former smoker alcohol intake: current Smoking Status: Former smoker alcohol intake frequency: 0-2 drinks per day Alcohol type: wine Substance Use Type: does not use Exam Initial Vital Signs Initial Vital Signs: Vital Signs Temperature 97.9 F 09/11/23 11:32 Pulse Rate 74 09/11/23 11:32 Respiratory Rate 18 09/11/23 11:32 Blood Pressure 185/93 H 09/11/23 11:32 Pulse Oximetry 97 09/11/23 11:32 Oxygen Delivery Method Room Air 09/11/23 11:32 GENERAL: Alert well-appearing 69 year old male and in no acute distress. HEENT: Head atraumatic,EOMI, pupils reactive, face symmetric, moist mucous membranes CARDIOVASCULAR: Regular rate and rhythm without murmurs, rubs or gallops. RESPIRATORY: Breath sounds equal bilaterally, no wheezes rales or rhonchi. ABDOMEN: Soft, nontender. Normoactive bowel sounds all 4 quadrants. No guarding or rebound. EXTREMITIES: Normal range of motion, no clubbing or edema. Neurovascularly intact Right lower extremity significant swelling and pain distal pedal pulse intact NEUROLOGICAL: Alert and oriented x4.Normal gait and speech. SKIN: Warm, dry, no laceration, no petechiae, no rashes or lesions. Course Orders Ordered: ED Orders 09/11/23 11:38 XR chest 1V Stat EKG-12 Lead Stat 09/11/23 11:53 Complete Blood Count AUTO DIFF Stat Comprehensive Metabolic Panel Stat Lipase Stat Magnesium Stat PTT Partial Thromboplastin Real Stat Prothrombin Time INR Stat Troponin & CK Cardiac Panel Stat 09/11/23 12:05 US periph venous low extrem rt Stat Vital Signs Vital signs: Vital Signs - 8 hr 09/11/23 11:32 Temperature 97.9 F Pulse Rate 74 Respiratory Rate 18 Blood Pressure 185/93 H Pulse Oximetry 97 Oxygen Delivery Method Room Air MDM - Extremity (Nontraumatic) Lab Data 09/11/23 11:53 09/11/23 11:53 Labs: Lab Results 09/11/23 Range/Units 11:53 WBC 7.5 (4.5-11.0) X10^3/uL RBC 4.28 L (4.5-5.9) X10^6/uL Hgb 14.0 (13.5-17.5) g/dL Hct 40.2 L (41-53) % MCV 93.9 (80-100) fL MCH 32.6 (26-34) PG MCHC 34.8 (30-36) % RDW 12.9 (11.6-14.8) % Plt Count 159 (150-400) X10^3/uL Neut % (Auto) 70.9 (50-75) % Lymph % (Auto) 18.8 L (25-40) % [place] % (Auto) 8.2 (3-14) % Eos % (Auto) 1.7 L (2-4) % Baso % (Auto) 0.4 (0-2) % Neut # (Auto) 5400 (4528-3563) /uL Lymph # (Auto) 1400 (3706-0101) /uL [place] # (Auto) 600 (0-900) /uL Eos # (Auto) 100 (0-450) /uL Baso # (Auto) 0 (0-100) /uL PT 12.5 (9.4-12.5) SECONDS INR 1.1 (0.9-1.3) APTT 31 (25.1-36.5) SECONDS Sodium 137 (137-145) mmol/L Potassium 3.7 (3.4-5.1) mmol/L Chloride 104 (98-107) mmol/L Carbon Dioxide 27 (22-32) mmol/L BUN 21 H (9-20) mg/dL Creatinine 1.00 (0.66-1.25) mg/dL Estimated GFR > 60 (>60) mL/min BUN/Creatinine Ratio 21.0 (6-22) Glucose 78 L (80-110) mg/dL Calcium 8.8 (8.4-10.2) mg/dL Magnesium 1.7 (1.6-2.3) mg/dL Total Bilirubin 1.3 (0.2-1.3) mg/dL AST 21 (17-59) IU/L ALT 14 (<50) IU/L Alkaline Phosphatase 64 (38-126) U/L Total Creatine Kinase 39 L (55-170) U/L Troponin I < 0.012 (0.01-0.034) ng/mL Total Protein 6.4 (6.3-8.2) g/dL Albumin 3.5 (3.5-5.0) g/dL Globulin 2.9 (1.7-4.1) g/dL Albumin/Globulin Ratio 1.2 (1.0-2.8) Lipase 52 (23-300) U/L Imaging Data US - DVT: Radiologist's Impression: PROCEDURE: US [facility] VENOUS LOW EXTREM RT INDICATIONS: RIGHT LOWER EXTREMITY EDEMA TECHNIQUE: Real-time imaging, as well as color and pulse Doppler interrogation, were performed of the lower extremity deep veins from the inguinal ligament to the popliteal fossa, with documentation of the visualized calf veins. COMPARISON: [facility], , US [facility] VENOUS LOW EXTREM RT, 03/31/2022, 10:35. FINDINGS: The common femoral, femoral, popliteal, and the visualized calf veins are normally compressible, and free of intraluminal thrombus. Color and pulse Doppler demonstrate normal phasic intraluminal flow. There is normal augmentation response to distal compression maneuver. Superficial venous thrombosis can be seen, with occlusive thrombus within the greater saphenous vein, which begins just below the level of the knee to the distal calf. IMPRESSION: No findings of lower extremity deep venous thrombosis. Superficial venous thrombosis can be seen, with occlusive thrombus within the greater saphenous vein from the level just below the knee to the distal calf. Dictated by: Dc Evans M.D. on 09/11/2023 at 11:56 Approved by: Dc Evans M.D. on 09/11/2023 at 11:57 ECG Data Interpretation: Normal sinus rhythm rate 58 PA interval 166 QRS 84 QTC [address] changes MDM Narrative Medical decision making narrative: Patient 78-year-old male with history of DVT presenting today with ongoing right leg swelling and pain. He was seen evaluated [facility] diagnosed with superficial venous thrombosis and discharged home on aspirin. He continues to have pain and swelling. Record an ultrasound reviewed from [facility] it does not measure the length of the clots Blood work today reviewed no leukocytosis no anemia no ZACHARY normal troponin Ultrasound today again shows superficial venous thrombosis below the knee, again it does not measure it. [id number] is likely low risk. However I did talk specifically with Radiology who thinks that it is greater than 5 cm. With increased pain and swelling I think reasonable to start him on Eliquis. He has previously been on Eliquis before and tolerated it. We again discussed risks and benefits. At this time no contraindication for anticoagulation. Discharge Plan Departure Patient Disposition: Home Clinical Impression: Superficial vein thrombosis Instructions: DI for Superficial Thrombophlebitis Activity Restrictions/Additional Instructions: *You have been diagnosed with superficial venous thrombosis *What to do: At this time you have a superficial blood clot however it is probably big enough for Eliquis. While taking Eliquis please avoid high-risk activities. you will bleed a lot easier. No that you will have to hold pressure elevate and ice to help with bleeding. If you should fallen hit your head please return to emergency department immediately *Continue to take medications as directed Eliquis 10 mg twice a day for 7 days and 5 mg twice a day for 45 days total --> DOD in [place] *Follow up with your primary care provider in 2-3 days or call [phone] Follow-up with your primary care as scheduled next week *Return to ER if you should have increasing pain swelling chest pain shortness of breath or any new, worsening or concerning symptoms Prescriptions: New Eliquis DVT-PE Treat 30D Start 5 mg (74 tabs) tablets,dose pack See Rx Instructions .ROUTE .COMPLEX Qty: 74 0RF Rx Instructions: orally per package directions No Action trazodone 50 mg tablet 50 mg PO DAILY cholecalciferol (vitamin D3) [Vitamin D3] 50 mcg (2,000 unit) Tablet 50 mcg PO DAILY Probiotic 3 billion cell Capsule 3,000 mmu cells PO DAILY losartan 25 mg tablet 25 mg PO DAILY sildenafil 25 mg tablet 25 mg PO DAILY PRN Rx Instructions: administer 30 minutes to 4 hours before activity tamsulosin 0.4 mg capsule 0.4 mg PO BEDTIME Referrals: Bernice Horton PA-C [Primary Care Provider] - Stand Alone Forms: Patient Portal/API
[2023-09-11 14:17] VITALS: BP 178/86; PULSE 66; RESP 20; TEMP 37.2; O2SAT 98
[2023-09-11 14:41] VITALS: PULSE 80; O2SAT 98
[2023-09-11] MEDS: APIXABAN 5 MG TABLET 10 MG PO (14:44)
[2023-09-11 14:45] VITALS: PULSE 78; O2SAT 94
[2023-09-11 14:46] VITALS: BP 184/94
[2023-09-11 14:47] VITALS: BP 184/94; PULSE 77
== END 2023-09-11 14:47 | disposition home or self-care (01) ==
PROVIDERS: Emergency Provider Emergency Medicine; PCP Physician Assistant
DX: I82.811 Embolism and thrombosis of superficial veins of right lower extremity (principal); R07.9 Chest pain, unspecified; Z79.01 Long term (current) use of anticoagulants
CPT/HCPCS: 36415; 71045; 80053; 82550; 83690; 83735; 84484; 85025; 85610; 85730; 93005; 93971; 99283; 99284

== ENCOUNTER → 2024-01-01 09:06 | Outpatient (CLI) | payer MEDICARE, OTHER, SELFPAY ==
--- NOTE | 2024-01-01 09:08 | DI.RAD.S_ITS ---
PROCEDURE: XR KNEE RT 3V INDICATIONS: KNEE PAIN TECHNIQUE: 3 views of the knee were acquired. COMPARISON: None. FINDINGS: Bones: No fractures or dislocations. No suspicious bony lesions. Mild tricompartmental knee joint degeneration. Question a small intra-articular body in the medial aspect of the knee joint adjacent to the patella. Soft tissues: Moderate joint effusion. No suspicious soft tissue calcifications. IMPRESSION: 1. Mild degenerative joint disease. 2. Moderate knee joint effusion. 3. Question small intra-articular body in the medial aspect of the knee joint.. Dictated by: Chu Matos M.D. on 01/01/2024 at 16:40 Approved by: Chu Matos M.D. on 01/01/2024 at 16:42
== END ==
LOC: RAD 09:07
PROVIDERS: PCP Physician Assistant; Referring Provider Physician Assistant; Visit Provider Physician Assistant
DX: M17.11 Unilateral primary osteoarthritis, right knee (principal); M25.561 Pain in right knee; M25.461 Effusion, right knee
CPT/HCPCS: 73562

== ENCOUNTER → 2024-02-28 15:28 | Outpatient (CLI) | payer MEDICARE, OTHER, SELFPAY ==
--- NOTE | 2024-02-28 15:37 | DI.RAD.S_ITS ---
PROCEDURE: XR LUMBAR SPINE 2-3V INDICATIONS: L HIP/BACK PAIN TECHNIQUE: 3 views of the lumbar spine were acquired. COMPARISON: [facility], MR, MR LUMBAR SPINE WO CON, 07/29/2020, 12:28. FINDINGS: Bones: 5 [id number] vertebrae are present. There is normal bony alignment. Chronic mild L1 and L4 vertebral body compression fractures. No suspicious bony lesions. Multilevel degenerative disease and moderate facet arthropathy throughout the lumbar spine most pronounced at L4-L5 and L5-S1. Soft tissues: Overlying bowel gas pattern is normal. Atherosclerotic calcifications are noted. IMPRESSION: 1. Chronic mild compression fractures of L1 and L4. 2. Moderate degenerative disc and facet disease. Dictated by: Chu Matos M.D. on 02/28/2024 at 16:55 Approved by: Chu Matos M.D. on 02/28/2024 at 16:59
--- NOTE | 2024-02-28 15:37 | DI.RAD.S_ITS ---
PROCEDURE: XR HIP W PEL IF DONE LT 2V INDICATIONS: L HIP/BACK PAIN TECHNIQUE: AP pelvis with lateral view(s) of the left hip(s). COMPARISON: [facility], CR, [id number] W PEL IF PERFORMED, 02/09/2017, 8:29. [facility], MR, MR LUMBAR SPINE WO CON, 07/29/2020, 12:28. [facility], CR, XR LUMBAR SPINE 2-3V, 02/28/2024, 15:49. FINDINGS: Bones: No fractures or dislocations. Pelvic ring appears intact. No suspicious bony lesions. Moderate degenerative joint disease in left hip, and mild degenerative joint disease in right hip and both sacroiliac joints. Moderate spondylitic changes in lower lumbar spine. Soft tissues: The visualized bowel gas pattern is normal. No suspicious soft tissue calcifications. IMPRESSION: Moderate degenerative joint disease. Dictated by: Chu Matos M.D. on 02/28/2024 at 17:00 Approved by: Chu Matos M.D. on 02/28/2024 at 17:03
== END ==
PROVIDERS: PCP Physician Assistant; Referring Provider Physician Assistant; Visit Provider Physician Assistant
DX: M16.0 Bilateral primary osteoarthritis of hip (principal); M46.1 Sacroiliitis, not elsewhere classified; M25.552 Pain in left hip; M51.36 Other intervertebral disc degeneration, lumbar region; M51.37 Other intervertebral disc degeneration, lumbosacral region; M47.816 Spondylosis without myelopathy or radiculopathy, lumbar region; M47.817 Spondylosis without myelopathy or radiculopathy, lumbosacral region; M48.56XA Collapsed vertebra, not elsewhere classified, lumbar region, initial encounter for fracture; M54.50 Low back pain, unspecified; G89.29 Other chronic pain
CPT/HCPCS: 72100; 73502

== ENCOUNTER → 2024-08-08 10:57 | Outpatient (CLI) | payer MEDICARE, OTHER, SELFPAY ==
[2024-08-08 13:24] LABS: Prostate Specific Antigen Scrn 20.1 ng/mL (0.1-4.0)
== END ==
PROVIDERS: PCP Physician Assistant; Referring Provider Urology; Visit Provider Urology
DX: Z12.5 Encounter for screening for malignant neoplasm of prostate (principal); N40.1 Benign prostatic hyperplasia with lower urinary tract symptoms; N39.42 Incontinence without sensory awareness; N13.8 Other obstructive and reflux uropathy; R39.14 Feeling of incomplete bladder emptying; R35.1 Nocturia; M62.89 Other specified disorders of muscle
CPT/HCPCS: 36415; 81002; 99214; G0103

== ENCOUNTER → 2024-08-20 09:09 | Outpatient (CLI) | payer MEDICARE, OTHER, SELFPAY ==
--- NOTE | 2024-08-20 09:10 | DI.MRI.S_ITS ---
PROCEDURE: MR PELVIC PROSTATE PROTOCOL INDICATIONS: Elevated PSA (21) TECHNIQUE: Coronal HASTE, axial T1 FSE with fat saturation, 3-plane nonbreath-hold T2 FSE. After the administration of contrast, dynamic axial, delayed axial and coronal VIBE or 2-D FLASH with fat saturation through the pelvis. Diffusion weighted imaging and ADC was performed. COMPARISON: [facility], CR, XR HIP W PEL IF DONE LT 2V, 02/28/2024, 15:49. FINDINGS: Image quality: Diffusion weighted and dynamic contrast enhanced images are diagnostic. Prostate: Gland size is 5.1 x 3.8 x 3.7 cm; ellipsoid gland volume is 37 mL. No significant foci of intrinsic T1 hyperintensity to suggest hemorrhage. Multiple BPH nodules. Lesion 1: Location: Left mid gland lateral peripheral zone, on axial series 4, image 13 and sagittal series 6, image 19. Size: 1.1 x 0.9 cm, (4/12). T2W signal: Heterogeneously hypointense DWI signal: Markedly hyperintense. ADC signal: Markedly hypointense. Enhancement: Yes. Extracapsular extension: No. No neurovascular involvement. PI-RADS score: 4 Lesion 2: Location: Left uppermost base transitional zone, on axial series 4, image 8 and sagittal series 6, image 16. Size: 0.4 x 0.4 cm, (4/8) T2W signal: Heterogeneous hypointense. DWI signal: Markedly hyperintense. ADC signal: Mildly hypointense. Enhancement: Yes. Extracapsular extension: No. No neurovascular involvement. PI-RADS score: 3 Genitourinary system: Bladder wall thickness is normal. Distal ureters are non distended. Bowel and peritoneum: No pathologic free pelvic fluid. Inferior colon and small bowel loops are normal in caliber. Diverticulosis. Normal appendix Nodes and vessels: No pelvic or inguinal adenopathy by size criteria. Iliac vessels are normal in caliber. Soft tissues: No inguinal hernias. Bones: Bone marrow is heterogeneous. IMPRESSION: 1. Prostatomegaly. Multiple BPH nodules. 2. Left lateral mid gland peripheral zone observation measuring 1.1 cm. PI-RADS 4. 3. Left uppermost base transitional zone observation measuring 0.4 cm. PI-RADS 3. 4. No enlarged lymph nodes. 5. Bone Marrow is heterogeneous. -Consider nuclear medicine bone scan for further evaluation. Dictated by: Omar Garzon M.D. on 08/20/2024 at 11:09 Approved by: Omar Garzon M.D. on 08/20/2024 at 11:26
== END ==
PROVIDERS: PCP Physician Assistant; Referring Provider Urology; Visit Provider Urology
DX: N40.2 Nodular prostate without lower urinary tract symptoms (principal); R97.20 Elevated prostate specific antigen [PSA]
CPT/HCPCS: 72197; A9579

== ENCOUNTER → 2024-11-04 09:11 | Outpatient (CLI) | payer MEDICARE, OTHER, SELFPAY ==
--- NOTE | 2024-11-04 09:12 | DI.NM.S_ITS ---
PROCEDURE: NM BONE SCAN WHOLE BODY RADIOPHARMACEUTICAL: 21.1 mCi Tc-99m MDP IV. INDICATIONS: New diagnosis prostate cancer TECHNIQUE: Delayed whole-body scintigrams were obtained approximately 3-4 hours after intravenous injection of radiotracer. Anterior and posterior views were acquired from vertex to feet. Additional left and right oblique views of the pelvis were obtained. COMPARISON: [facility], CT, CT ABDOMEN PELVIS W CON, 11/04/2024, 10:24. [facility], MR, MR PELVIC PROSTATE PROTOCOL, 08/20/2024, 9:36. FINDINGS: Degenerative changes are seen in the upper and lower extremities, especially the shoulders. Multiple foci of radiotracer uptake are seen matter at a moderate suspicion for malignancy, most notably in the right upper thoracic spine, left sacrum, multiple ribs (greater in number on the right). Some of the rib uptake may also represent fractures. IMPRESSION: Multiple foci of radiotracer uptake that are at a moderate suspicion for malignancy. These are best seen on posterior images in the right upper thoracic spine, right-sided ribs, and the left sacrum. Dictated by: Elgin Zelaya M.D. on 11/04/2024 at 14:54 Approved by: Elgin Zelaya M.D. on 11/04/2024 at 14:57
--- NOTE | 2024-11-04 09:12 | DI.CT.S_ITS ---
PROCEDURE: CT ABDOMEN PELVIS W CON INDICATIONS: New diagnosis prostate cancer TECHNIQUE: After the administration of intravenous contrast, axial sections acquired from the lung bases to the pubic symphysis. Coronal and sagittal reformats were performed. For radiation dose reduction, the following was used: automated exposure control, adjustment of mA and/or kV according to patient size. COMPARISON: Same-day nuclear medicine bone scan 11/04/2024, MR pelvic prostate 08/20/2024. FINDINGS: Image quality: Diagnostic. Lower Chest: No significant findings. ABDOMEN: Liver: No solid mass. Gallbladder: No radiopaque gallstones or wall thickening. Biliary ducts: No biliary dilation. Pancreas: No ductal dilation. Fatty atrophy Spleen: Size is within normal limits. Adrenal Glands: No adrenal nodules. Kidneys and Ureters: A trophic kidneys. No hydronephrosis. No solid mass. No complex renal cystic lesion which requires follow up. Stomach and Bowel: Normal colonic caliber, without significant wall thickening. Large hiatal hernia. Colonic diverticulosis without acute inflammation. Peritoneum: No abnormal intraperitoneal fluid. No free air. Ventral Wall: No significant ventral hernia. Abdominal Nodes: No retroperitoneal or mesenteric adenopathy by size criteria. Vessels: Aorta and inferior vena cava are normal in size. PELVIS: Pelvic Organs: Heterogeneous and enlarged prostate. Bladder: No bladder wall thickening, accounting for underdistention. Pelvic Nodes: No enlarged lymph nodes. Miscellaneous: No inguinal hernias are seen. Bones: No aggressive osseous abnormality. Multilevel degenerative changes. Chronic appearing compression deformity of L1 and probable L4. No acute vertebral body compression fracture. IMPRESSION: No definite CT evidence of active metastatic disease in the abdomen or pelvis. Large hiatal hernia. Additional findings as above. Approved by: Jacqueline Schultz M.D.,Ph.D. on 11/06/2024 at 3:22
[2024-11-04 09:35] LABS: BUN Creatinine Ratio 13.7 (6-22); Blood Urea Nitrogen 18 mg/dL (9-20); Calcium 8.9 mg/dL (8.4-10.2); Carbon Dioxide 26 mmol/L (22-32); Chloride 106 mmol/L (98-107); Estimated Glomerular Filt Rate 55 mL/min (>60); Glucose 92 mg/dL (80-110); HEMOLYSIS < 15 (0-50); Potassium 3.9 mmol/L (3.4-5.1); Sodium 138 mmol/L (137-145)
== END ==
PROVIDERS: PCP Physician Assistant; Referring Provider Urology; Visit Provider Urology
DX: C61 Malignant neoplasm of prostate (principal); R97.20 Elevated prostate specific antigen [PSA]; K44.9 Diaphragmatic hernia without obstruction or gangrene; K57.90 Diverticulosis of intestine, part unspecified, without perforation or abscess without bleeding
CPT/HCPCS: 36415; 74177; 78306; 80048; A9503; Q9967

== ENCOUNTER → 2024-12-15 11:51 | Outpatient (CLI) | payer MEDICARE, OTHER, SELFPAY ==
[2024-12-15 12:14] LABS: Hematocrit 39.6 % (41-53); Hemoglobin 13.8 g/dL (13.5-17.5); Mean Corpuscular HGB Conc 34.9 % (30-36); Mean Corpuscular Hemoglobin 32.5 PG (26-34); Mean Corpuscular Volume 93.1 fL (80-100); Platelet Count 197 X10^3/uL (150-400); Red Blood Cell Count 4.25 X10^6/uL (4.5-5.9); Red Cell Distribution Width 13.5 % (11.6-14.8); White Blood Cell Count 7.3 X10^3/uL (4.5-11.0)
== END ==
LOC: LAB 11:52
PROVIDERS: PCP Physician Assistant; Referring Provider Internal Medicine Cardiovascular Disease; Visit Provider Internal Medicine Cardiovascular Disease
DX: R06.02 Shortness of breath (principal)
CPT/HCPCS: 36415; 85027

== ENCOUNTER → 2025-02-13 10:01 | Outpatient (CLI) | payer MEDICARE, OTHER, SELFPAY ==
--- NOTE | 2025-02-13 10:02 | DI.ECHO.S_ITS ---
[facility]+ [facility] : : [id number] : [place] : : [id number] : : Phone: [phone] Echocardiogram Report + + :Name: GREGORIA CARABALLO Study Date: 02/13/2025 Height: 72 in : :[facility] ReadingLocation: Weight: 185 lb : : Gender: Male BSA: 2.1 m2 : :: 1945 Age: 79 yrs BP: 165/85 mmHg: :Reason For Study: LOWER EXTREMITY EDEMA : :Ordering Physician: DRU, : :JENNIFER Performed By: Reynold Santacruz : :Referring: JENNIFER GONSALES : + + Interpretation Summary Left ventricular ejection fraction is estimated to be 55 +/- 5%. The aortic valve is trileaflet. The aortic valve is moderately calcified. There is mild aortic stenosis. There is moderate aortic regurgitation. The ascending aorta is mildly enlarged. Procedure: A two-dimensional transthoracic echocardiogram with color flow and Doppler was performed. The study quality was technically good. Comparison is made with the echocardiogram of 06/12/2023. The patient was in normal sinus rhythm during the exam. Left Ventricle: The left ventricle is normal in size. There is normal left ventricular wall thickness. There is no ventricular septal defect visualized. Left ventricular ejection fraction is estimated to be 55 +/- 5%. There are no focal wall motion abnormalities. Diastolic parameters suggest a relaxation abnormality of the left ventricle, consistent with probable normal filling pressures. Right Ventricle: The right ventricle is normal in size and function. Atria: There is moderate biatrial enlargement. There is no Doppler evidence for an interatrial shunt. Mitral Valve: The mitral valve leaflets appear normal. There is no evidence of stenosis, fluttering, or prolapse. There is trace mitral regurgitation. Aortic Valve: The aortic valve is trileaflet. The aortic valve is moderately calcified. There is mild aortic stenosis. The peak aortic velocity is 2.1 m/sec. The aortic valve mean gradient is 9.0 mmHg. The calculated aortic valve area is 1.5 cm2. There is moderate aortic regurgitation. Tricuspid Valve: The tricuspid valve leaflets are thin and pliable. There is a trace or physiologic amount of tricuspid regurgitation. Pulmonic Valve: The pulmonic valve leaflets are thin and pliable; valve motion is normal. There is no pulmonic valvular regurgitation. Great Vessels: The aortic root is normal size. The ascending aorta is mildly enlarged. The pulmonary artery is normal size. The IVC is of normal diameter and collapses greater than 50% with a sniff. This suggests a low right atrial pressure of 3 mm Hg. Pericardium/ Pleura There is no pericardial effusion. There is no pleural effusion. MMode/2D Measurements & Calculations LVIDd: 5.6 cm LVOT diam: 2.0 cm LVIDs: 3.9 cm Ao root diam: 3.9 cm FS: 30.2 % asc Aorta Diam: 4.3 cm EPSS: 0.84 cm IVSd: 0.94 cm LVPWd: 0.81 cm LV west. diameter/BSA (cm/m^2): 2.7 LV sys. diameter/BSA (cm/m^2): 1.9 LA A2 area: 24.5 cm2 RA long axis: 5.9 cm LA A4 area: 27.0 cm2 RA area: 23.7 cm2 LA length (vol): 6.2 cm RA vol: 81.3 ml LA vol: 90.3 ml RA : 39.4 ml/m2 LA vol index: 43.8 ml/m2 IVC diam: 1.5 cm RVD1 (basal): 3.8 cm RVD2 (mid): 2.8 cm TAPSE: 2.7 cm Doppler Measurements & Calculations Ao V2 max: 210.4 cm/sec LVOT Max Jorge: 119.0 cm/sec Ao V2 mean: 139.1 cm/sec LV V1 max P.7 mmHg Ao max P.7 mmHg LV V1 VTI: 21.9 cm Ao mean P.0 mmHg DWIGHT(I,D): 1.5 cm2 Ao V2 VTI: 47.6 cm DWIGHT(V,D): 1.8 cm2 sev ratio: 0.46 DWIGHT indexed to BSA (cm^2/m^2): 0.71 AI P1/2t: 548.2 msec AI dec slope: 249.4 cm/sec2 MV E max jorge: 31.3 cm/sec TR max jorge: 223.0 cm/sec MV A max jorge: 65.3 cm/sec TR max P.9 mmHg MV E/A: 0.48 PA V2 max: 93.7 cm/sec Med Peak E' Jorge: 3.6 cm/sec PA V2 mean: 62.6 cm/sec E/E' med: 8.6 PA mean P.8 mmHg Lat Peak E' Jorge: 5.6 cm/sec PA pr(Accel): 36.2 mmHg E/E' lat: 5.6 E/e' average: 7.1 MV dec time: 0.34 sec SV(LVOT): 70.1 ml Reading Physician:05:28 PM
== END ==
PROVIDERS: PCP Physician Assistant; Referring Provider Internal Medicine Critical Care Medicine; Visit Provider Internal Medicine Critical Care Medicine
DX: R06.09 Other forms of dyspnea (principal); I70.0 Atherosclerosis of aorta; I35.0 Nonrheumatic aortic (valve) stenosis; I35.1 Nonrheumatic aortic (valve) insufficiency; I51.7 Cardiomegaly
CPT/HCPCS: 93306

== ENCOUNTER → 2025-02-18 10:04 | Outpatient (CLI) | payer MEDICARE, OTHER, SELFPAY ==
[2025-02-18 14:35] LABS: Prostate Specific Antigen 5.07 ng/mL (0.10-4.00)
== END ==
PROVIDERS: PCP Physician Assistant; Referring Provider Urology; Visit Provider Urology
DX: C61 Malignant neoplasm of prostate (principal)
CPT/HCPCS: 36415; 84153

== ENCOUNTER → 2025-02-25 11:19 | Outpatient (CLI) | payer MEDICARE, OTHER, SELFPAY | LOC: RESP 11:20 | PROVIDERS: PCP Physician Assistant; Referring Provider Internal Medicine Critical Care Medicine; Visit Provider Internal Medicine Critical Care Medicine | DX: R06.09 Other forms of dyspnea (principal); Z87.891 Personal history of nicotine dependence; R94.2 Abnormal results of pulmonary function studies | CPT/HCPCS: 94060; 94618; 94726; 94729 ==

== ENCOUNTER → 2025-04-23 09:54 | Outpatient (CLI) | payer MEDICARE, OTHER, SELFPAY ==
[2025-04-23 10:11] LABS: Add Manual Diff / Slide Review NO; Hematocrit 38.7 % (41-53); Hemoglobin 13.7 g/dL (13.5-17.5); Lymphocytes Absolute Auto 1400 /uL (1100-4500); Mean Corpuscular HGB Conc 35.3 % (30-36); Mean Corpuscular Hemoglobin 33.3 PG (26-34); Mean Corpuscular Volume 94.4 fL (80-100); Platelet Count 163 X10^3/uL (150-400)
[2025-04-23 10:36] LABS: Alanine Aminotransferase 19 IU/L (<50); Albumin 3.8 g/dL (3.5-5.0); Albumin Globulin Ratio 1.4 (1.0-2.8); Alkaline Phosphatase 68 U/L (38-126); Blood Urea Nitrogen 29 mg/dL (9-20); Calcium 9.0 mg/dL (8.4-10.2); Carbon Dioxide 27 mmol/L (22-32); Chloride 107 mmol/L (98-107); Estimated Glomerular Filt Rate > 60 mL/min (>60); Globulin 2.8 g/dL (1.7-4.1); Glucose 105 mg/dL (70-99); HEMOLYSIS < 15 (0-50); Potassium 4.0 mmol/L (3.4-5.1); Sodium 141 mmol/L (137-145); Total Protein 6.6 g/dL (6.3-8.2)
[2025-04-23 11:07] LABS: Prostate Specific Antigen 0.094 ng/mL (0.10-4.00)
== END ==
PROVIDERS: PCP Physician Assistant; Referring Provider Internal Medicine Hematology & Oncology; Visit Provider Internal Medicine Hematology & Oncology
DX: C61 Malignant neoplasm of prostate (principal); C79.51 Secondary malignant neoplasm of bone
CPT/HCPCS: 36415; 80053; 84153; 85025

== ENCOUNTER → 2025-07-14 13:47 | Outpatient (CLI) | payer MEDICARE, OTHER, SELFPAY ==
[2025-07-14 15:27] LABS: Prostate Specific Antigen < 0.064 ng/mL (0.10-4.00)
== END ==
PROVIDERS: PCP Physician Assistant; Referring Provider Urology; Visit Provider Urology
DX: C61 Malignant neoplasm of prostate (principal)
CPT/HCPCS: 36415; 84153